=== PATIENT | female | born 1990 | race Hispanic/Latino ===

== ENCOUNTER 2019-02-20 13:55 | Emergency (ER) | payer OTHER | END 2019-02-20 16:19 | disposition home or self-care (01) | LOC: EDH 13:55 | DX: S09.90XA Unspecified injury of head, initial encounter (principal); R42 Dizziness and giddiness; F41.9 Anxiety disorder, unspecified; F32.9 Major depressive disorder, single episode, unspecified; Z79.899 Other long term (current) drug therapy; W18.39XA Other fall on same level, initial encounter; Y93.89 Activity, other specified; Y92.89 Other specified places as the place of occurrence of the external cause; Y99.8 Other external cause status | CPT/HCPCS: 99282 ==

== ENCOUNTER 2023-03-01 07:29 | Emergency (ER) | payer MEDICAID ==
[~2023-03-01] VITALS: Ht 160 cm; Wt 81.6 kg
[2023-03-01] MEDS ORDERED: DEXAMETHASONE SOD PHOSPHATE 4 MG/ML 1ML VIAL IM ONE (08:30)
[2023-03-01] MEDS ORDERED: BENZONATATE 100 MG CAPSULE PO ONE (08:30)
[2023-03-01] MEDS ORDERED: ALBUTEROL 0.083% 2.5 MG/3 ML INH IH ONE (08:30)
[2023-03-01 08:39] VITALS: PULSE 65; RESP 14
[2023-03-01 08:39] LABS: RAPID GROUP A STREP negative (NEGATIVE)
[2023-03-01 08:43] LABS: SARS-CoV-2, RNA, NAAT NEGATIVE SARS CoV-2 (NEGATIVE)
[2023-03-01 08:50] LABS: INFLUENZA TYPE A Negative For Type A (NEGATIVE); INFLUENZA TYPE B Negative For Type B (NEGATIVE)
[2023-03-01] MEDS ORDERED: BENZ-39 PO (09:36)
[2023-03-01] MEDS ORDERED: ALBUHFA IH (09:36)
[2023-03-01 09:48] VITALS: BP 111/72; PULSE 67; RESP 14; O2SAT 98
== END 2023-03-01 10:04 | disposition home or self-care (01) ==
LOC: EDH 07:29
DX: J02.8 Acute pharyngitis due to other specified organisms (principal); B97.89 Other viral agents as the cause of diseases classified elsewhere; J45.909 Unspecified asthma, uncomplicated; Z20.822 Contact with and (suspected) exposure to COVID-19; Z90.89 Acquired absence of other organs; Z98.890 Other specified postprocedural states; Z77.120 Contact with and (suspected) exposure to mold (toxic)
CPT/HCPCS: 99283; 87635; 87880; 87804 ×2; 96372; 94640; J1100; C9803

== ENCOUNTER 2023-05-30 21:31 | Emergency (ER) | payer MEDICAID ==
[~2023-05-30] VITALS: Ht 160 cm; Wt 82.6 kg
[~2023-05-30 21:31] MED LIST: ALBUHFA IH; BENZ-39 PO
[2023-05-30] MEDS ORDERED: SOLU-MEDROL 125MG VIAL IVP ONE (22:00)
[2023-05-30] MEDS ORDERED: IPRATROPIUM/ALBUTEROL SULFATE 3 ML SOLUTION IH ONE ×2 (22:00)
[2023-05-30 22:14] VITALS: PULSE 96; RESP 20
[2023-05-30 22:14] LABS: BASOPHILS # (AUTO) 0.06 K/uL (0.00-0.20); BASOPHILS % (AUTO) 0.4 % (0.0-5.0); EOSINOPHILS # (AUTO) 0.52 K/uL (0.00-0.70); EOSINOPHILS % (AUTO) 3.3 % (0.0-8.0); HEMATOCRIT 44.7 % (36-48); IMMATURE GRANULOCYTE ABSOLUTE 0.07 K/uL (0-1); LYMPHOCYTES # (AUTO) 4.1 K/uL (1.0-4.8); LYMPHOCYTES % (AUTO) 25.6 % (21.0-51.0); MEAN CORPUSCULAR HEMOGLOBIN 27.8 pg (27.0-33.0); MEAN CORPUSCULAR HGB CONC 33.8 g/dL (32.0-36.0); MEAN CORPUSCULAR VOLUME 82.3 fL (79-99); MONOCYTES # (AUTO) 0.6 K/uL (0.1-1.0); MONOCYTES % (AUTO) 3.6 % (3.0-13.0); NEUTROPHILS # (AUTO) 10.7 K/uL (1.8-7.7); NEUTROPHILS % (AUTO) 66.7 % (40.0-77.0); PLATELET COUNT (AUTO) 248 K/uL (130-400); RED BLOOD CELL COUNT(AUTO) 5.43 MIL/uL (4.00-5.50)
[2023-05-30 22:20] LABS: APPEARANCE,URINE CLEAR (CLEAR); BILIRUBIN,URINE NEGATIVE (NEGATIVE); COLOR,URINE LIGHT-YELLOW (YELLOW); GLUCOSE, URINE (UA) NEGATIVE (NEGATIVE); KETONES,URINE NEGATIVE (NEGATIVE); LEUKOCYTE ESTERASE ,URINE 75 Leu/uL (NEGATIVE); NITRATE,URINE NEGATIVE (NEGATIVE); OCCULT BLOOD,URINE LARGE (NEGATIVE); PH,URINE 5.5 (5.0-8.0); PROTEIN,URINE NEGATIVE (NEGATIVE); UROBILINOGEN,URINE 0.2 mg/dL (0.2-1.0)
[2023-05-30 22:21] LABS: ADD UA MICROSCOPIC YES
[2023-05-30 22:22] LABS: MUCUS,URINE RARE LPF (None Seen); RBC,URINE 26-50 /HPF (0-1); SQUAMOUS EPITHELIAL CELL,UR MOD /HPF (0-2)
[2023-05-30 22:25] VITALS: PULSE 106; RESP 20
[2023-05-30 22:27] LABS: SARS-CoV-2, RNA, NAAT NEGATIVE SARS CoV-2 (NEGATIVE)
[2023-05-30 22:32] LABS: INFLUENZA TYPE A Negative For Type A (NEGATIVE); INFLUENZA TYPE B Negative For Type B (NEGATIVE)
[2023-05-30 22:43] LABS: ALBUMIN 3.2 g/dL (3.5-5.0); BILIRUBIN,TOTAL 0.4 mg/dL (0.2-1.0); CREATININE 0.7 mg/dL (0.5-1.5); POTASSIUM 3.4 mmol/L (3.5-5.1); TOTAL PROTEIN, SERUM 7.2 g/dL (6.0-8.3)
[2023-05-30] MEDS ORDERED: BUDE0.5A3 IH (22:58)
[2023-05-30] MEDS ORDERED: PRED50TA2 PO (22:58)
[2023-05-30] MEDS ORDERED: IPRA3AMP24 IH (22:58)
[2023-05-30 23:03] VITALS: BP 106/66; PULSE 85; RESP 18; O2SAT 100
== END 2023-05-30 23:14 | disposition home or self-care (01) ==
LOC: EDH 21:31
DX: J45.901 Unspecified asthma with (acute) exacerbation (principal); Z88.8 Allergy status to other drugs, medicaments and biological substances; Z90.89 Acquired absence of other organs; Z20.822 Contact with and (suspected) exposure to COVID-19
CPT/HCPCS: 99285; 96374; 87635; 80053; 85025; 87088; 87880; 87804 ×2; 81001; 36415; 94640 ×2; C9803; J2930; 96375

== ENCOUNTER 2023-07-05 13:59 | Emergency (ER) | payer MEDICAID ==
[~2023-07-05] VITALS: Ht 160 cm; Wt 82.6 kg
[~2023-07-05 13:59] MED LIST changes: +BUDE0.5A3 IH; +IPRA3AMP24 IH; +PRED50TA2 PO
[2023-07-05 16:00] VITALS: PULSE 105; RESP 20
[2023-07-05] MEDS ORDERED: IBUPROFEN 600 MG TABLET PO ONE (16:00)
[2023-07-05] MEDS ORDERED: IPRATROPIUM/ALBUTEROL SULFATE 3 ML SOLUTION IH ONE (16:00)
[2023-07-05] MEDS ORDERED: PREDNISONE 20 MG TABLET PO ONE (16:00)
[2023-07-05 16:36] VITALS: BP 104/66; PULSE 103; RESP 20; O2SAT 99
[2023-07-05] MEDS ORDERED: PRED20TA3 PO (17:12)
== END 2023-07-05 17:30 | disposition home or self-care (01) ==
LOC: EDH 13:59
DX: J45.901 Unspecified asthma with (acute) exacerbation (principal)
CPT/HCPCS: 94640

== ENCOUNTER 2023-08-30 10:22 | Observation (INO) | payer MEDICAID ==
[2023-08-30] VITALS (9 sets, daily range): BP systolic 108–117; BP diastolic 66–72; PULSE 99–114; RESP 16–28; O2SAT 95–97
[~2023-08-30] VITALS: Ht 160 cm; Wt 82.6 kg
[~2023-08-30 10:22] MED LIST changes: +PRED20TA3 PO
[2023-08-30] MEDS ORDERED: BUDESONIDE 0.25 MG/2 ML INH IH ONE (10:30)
[2023-08-30] MEDS: SOLU-MEDROL 125MG VIAL ONE (10:36)
[2023-08-30] MEDS: SOLU-MEDROL 125MG VIAL IVP ONE (10:36)
[2023-08-30] MEDS: LORAZEPAM 2 MG/ML 1 ML VIAL IVP ONE (10:36)
[2023-08-30] MEDS: IPRATROPIUM/ALBUTEROL SULFATE 3 ML SOLUTION IH ONE ×2 (10:40→10:46)
[2023-08-30 10:42] LABS: ABG BASE EXCESS -2.3 mmol/L (-2.0-3.0); ABG HCO3 21.3 mmol/L (21.0-28.0); ABG OXYGEN SATURATION 98.3 % (95.0-99.0); ABG PCO2 34 mmHg (32-45); CARBON MONOXIDE 0.3; HHb 1.7; PO2, ARTERIAL BG 110.3 mmHg (83.0-108.0); VENT MODE, BG NEB TREATMENT (ROOM AIR)
[2023-08-30] MEDS: 0.9%NACL 1000ML 1,000 ML IV ONE (10:43)
[2023-08-30] MEDS: MAGNESIUM 2GM PREMIX 50ML 50 ML IV ONE (10:50)
[2023-08-30] MEDS: BUDESONIDE 0.5 MG/2 ML INH IH SCH (10:51)
[2023-08-30 11:04] LABS: BASOPHILS # (AUTO) 0.06 K/uL (0.00-0.20); BASOPHILS % (AUTO) 0.5 % (0.0-5.0); EOSINOPHILS # (AUTO) 0.51 K/uL (0.00-0.70); EOSINOPHILS % (AUTO) 4.6 % (0.0-8.0); HEMATOCRIT 40.4 % (36-48); IMMATURE GRANULOCYTE ABSOLUTE 0.12 K/uL (0-1); LYMPHOCYTES # (AUTO) 2.8 K/uL (1.0-4.8); LYMPHOCYTES % (AUTO) 25.1 % (21.0-51.0); MEAN CORPUSCULAR HEMOGLOBIN 26.6 pg (27.0-33.0); MEAN CORPUSCULAR HGB CONC 32.4 g/dL (32.0-36.0); MEAN CORPUSCULAR VOLUME 82.1 fL (79-99); MONOCYTES # (AUTO) 0.3 K/uL (0.1-1.0); NEUTROPHILS # (AUTO) 7.3 K/uL (1.8-7.7); NEUTROPHILS % (AUTO) 65.7 % (40.0-77.0); PLATELET COUNT (AUTO) 190 K/uL (130-400); RED BLOOD CELL COUNT(AUTO) 4.92 MIL/uL (4.00-5.50); WHITE BLOOD COUNT (AUTO) 11.2 K/uL (4.8-10.8)
[2023-08-30 11:15] LABS: CREATININE 0.8 mg/dL (0.5-1.5); POTASSIUM 3.2 mmol/L (3.5-5.1)
[2023-08-30 11:20] LABS: BILIRUBIN,TOTAL 0.3 mg/dL (0.2-1.0); TOTAL PROTEIN, SERUM 6.7 g/dL (6.0-8.3)
[2023-08-30] MEDS ORDERED: IPRATROPIUM/ALBUTEROL SULFATE 3 ML SOLUTION IH PRN (12:30)
[2023-08-30] MEDS ORDERED: ONDANSETRON 4MG INJ IVP PRN (12:30)
[2023-08-30] MEDS: 0.9%NACL 1000ML 1,000 ML IV SCH (14:44)
[2023-08-30] MEDS: AZITHROMYCIN 500MG+NS 250ML 250 ML IVPB SCH (14:44)
[2023-08-30] MEDS: 0.9% NACL 250ML 250 ML ONE (14:45)
[2023-08-30] MEDS: CEFTRIAXONE 1G VIAL IVPB SCH (14:45)
[2023-08-30 15:12] LABS: APPEARANCE,URINE CLEAR (CLEAR); BILIRUBIN,URINE NEGATIVE (NEGATIVE); COLOR,URINE LIGHT-YELLOW (YELLOW); GLUCOSE, URINE (UA) NEGATIVE (NEGATIVE); KETONES,URINE NEGATIVE (NEGATIVE); LEUKOCYTE ESTERASE ,URINE NEGATIVE Leu/uL (NEGATIVE); NITRATE,URINE NEGATIVE (NEGATIVE); OCCULT BLOOD,URINE SMALL (NEGATIVE); PH,URINE 5.5 (5.0-8.0); PROTEIN,URINE NEGATIVE (NEGATIVE); UROBILINOGEN,URINE 0.2 mg/dL (0.2-1.0)
[2023-08-30 15:13] LABS: ADD UA MICROSCOPIC YES
[2023-08-30 15:16] LABS: BACTERIA,URINE RARE /HPF (None Seen); MUCUS,URINE RARE LPF (None Seen); SQUAMOUS EPITHELIAL CELL,UR FEW /HPF (0-2); WBC,URINE 0-1 /HPF (0-1); YEAST,URINE BUDDING RARE /HPF (None Seen)
[2023-08-30] MEDS ORDERED: GUAIFENESIN-DM 200/20 MG 10 ML PO PRN (15:30)
[2023-08-30] MEDS ORDERED: POTASSIUM CHLORIDE 20MEQ/100ML 100 ML IV PRN (16:00)
[2023-08-30] MEDS: ACETAMINOPHEN 325 MG TAB PO PRN (16:11)
[2023-08-30] MEDS: IPRATROPIUM/ALBUTEROL SULFATE 3 ML SOLUTION IH SCH (20:14)
[2023-08-30] MEDS: FAMOTIDINE 20MG VIAL IV SCH (20:38)
[2023-08-30] MEDS: SOLU-MEDROL 40MG VIAL IVP SCH (20:38)
[2023-08-30] MEDS ORDERED: MIRT7.5T11 PO (20:46)
[2023-08-30] MEDS ORDERED: SERT-439 PO (20:46)
[2023-08-30] MEDS: POTASSIUM CHLORIDE 10% ELIXIR 20 MEQ/15 ML UDCUP PO PRN (21:59)
[2023-08-30] MEDS: HYDROXYZINE 25 MG TABLET PO ONE (21:59)
[2023-08-30] MEDS: KCL 20 MEQ ERTAB PO PRN (23:50)
[2023-08-31 04:00] VITALS: BP 103/70; PULSE 86; RESP 19
[2023-08-31 06:35] LABS: CREATININE 0.6 mg/dL (0.5-1.5); MAGNESIUM 2.6 mg/dL (1.80-2.40); POTASSIUM 4.2 mmol/L (3.5-5.1)
[2023-08-31 06:53] VITALS: PULSE 72; RESP 20
[2023-08-31 06:55] VITALS: PULSE 82; RESP 20; O2SAT 96
[2023-08-31 07:09] VITALS: BP 111/64; PULSE 91; RESP 19
[2023-08-31 08:00] VITALS: O2SAT 97
[2023-08-31] MEDS: SOLU-MEDROL 40MG VIAL IVP SCH (10:08)
[2023-08-31] MEDS: ENOXAPARIN SODIUM 40 MG/0.4 ML SYRINGE SQ SCH (10:12)
[2023-08-31] MEDS ORDERED: AZIT500T4 PO (10:53)
[2023-08-31] MEDS ORDERED: METH4TAB3 PO (10:53)
[2023-08-31 11:33] VITALS: PULSE 84; RESP 20
[2023-09-08] MEDS ORDERED: BUDE10.7 IH (18:02)
[2023-09-08] MEDS ORDERED: PRED5SOL PO (18:04)
[2023-09-08] MEDS ORDERED: PRED10TA3 PO (18:04)
[2023-09-09] MEDS ORDERED: MONT-39 PO (17:33)
== END 2023-08-31 12:00 | disposition home or self-care (01) ==
LOC: EDH 10:22 → EDHIP 10:23 → UNDOADMOB 12:25 → EDHIP 17:51 → 3BH 17:51
PROVIDERS: ADMIT Internal Medicine; ATTEND Internal Medicine
DX: J96.01 Acute respiratory failure with hypoxia (principal); J45.901 Unspecified asthma with (acute) exacerbation; E87.6 Hypokalemia; D72.829 Elevated white blood cell count, unspecified; R00.0 Tachycardia, unspecified; F41.9 Anxiety disorder, unspecified; Z88.5 Allergy status to narcotic agent; Z90.710 Acquired absence of both cervix and uterus
CPT/HCPCS: 96376 ×2; 96365; 96366; 96375; 96367; 99285; 82435; 82947; 84132; 84295; 80053; 82803; 85025; 85018; 87088; 83605; 81001; 36415 ×2; 71045; 93005; 36600; 94640 ×6; 94664; 84145; 96372; 96361; 83735; 80048; G0378 ×22; J3475; S0028 ×2; J7030; J2930; J0696; J2920 ×2; J0456; J7050; J1650; J3490

== ENCOUNTER 2023-09-11 08:37 | Emergency (ER) | payer MEDICAID ==
[~2023-09-11] VITALS: Ht 160 cm; Wt 82.6 kg
[~2023-09-11 08:37] MED LIST changes: -BENZ-39 PO; -BUDE0.5A3 IH; +BUDE10.7 IH; -IPRA3AMP24 IH; +MIRT7.5T11 PO; +MONT-39 PO; +PRED10TA3 PO; -PRED20TA3 PO; -PRED50TA2 PO; +PRED5SOL PO; +SERT-439 PO
[2023-09-11 08:57] LABS: BASOPHILS # (AUTO) 0.13 K/uL (0.00-0.20); BASOPHILS % (AUTO) 0.5 % (0.0-5.0); EOSINOPHILS # (AUTO) 0.42 K/uL (0.00-0.70); EOSINOPHILS % (AUTO) 1.7 % (0.0-8.0); HEMATOCRIT 45.6 % (36-48); IMMATURE GRANULOCYTE ABSOLUTE 0.69 K/uL (0-1); LYMPHOCYTES # (AUTO) 5.8 K/uL (1.0-4.8); LYMPHOCYTES % (AUTO) 23.6 % (21.0-51.0); MEAN CORPUSCULAR HEMOGLOBIN 26.2 pg (27.0-33.0); MEAN CORPUSCULAR HGB CONC 32.5 g/dL (32.0-36.0); MEAN CORPUSCULAR VOLUME 80.9 fL (79-99); MONOCYTES % (AUTO) 4.2 % (3.0-13.0); NEUTROPHILS # (AUTO) 16.5 K/uL (1.8-7.7); NEUTROPHILS % (AUTO) 67.2 % (40.0-77.0); PLATELET COUNT (AUTO) 324 K/uL (130-400); RED BLOOD CELL COUNT(AUTO) 5.64 MIL/uL (4.00-5.50); RED CELL DISTRIBUTION WIDTH 14.2 % (11.0-15.5); WHITE BLOOD COUNT (AUTO) 24.6 K/uL (4.8-10.8)
[2023-09-11 09:15] LABS: INR <= 0.93 (0.85-1.15); PROTHROMBIN TIME 10.3 SEC (9.6-11.6)
[2023-09-11 09:16] LABS: PARTIAL THROMBOPLASTIN TIME 29.5 SEC (26.3-35.5)
[2023-09-11 09:18] LABS: ALBUMIN 3.5 g/dL (3.5-5.0); BILIRUBIN,TOTAL 0.7 mg/dL (0.2-1.0); CREATININE 0.6 mg/dL (0.5-1.0); MAGNESIUM 2.3 mg/dL (1.80-2.40); POTASSIUM 4.9 mmol/L (3.5-5.1)
[2023-09-11] MEDS: ONDANSETRON 4MG INJ IVP ONE (09:26)
[2023-09-11 09:48] LABS: B-TYPE NATRIURETIC PEPTIDE < 5 pg/mL (0-100)
[2023-09-11] MEDS ORDERED: IOHEXOL-350 75 ML VIAL IV ONE (10:42)
[2023-09-11 10:47] LABS: EOSINOPHILS % (MANUAL) 1 % (1-6); LYMPHOCYTES % (MANUAL) 17 % (22-44); MAN.DIFF COMMENT-IMPRESSION MANUAL DIFFERENTIAL; MONOCYTES % (MANUAL) 1 % (2-9); PLATELET MORPHOLOGY COMMENT ADEQUATE; REACTIVE LYMPHOCYTES 6 % (0-0); SEGMENTED NEUTROPHILS % 75 % (40-70); TOTAL CELLS COUNTED 100
[2023-09-11 11:01] LABS: AMPHET/METH SCREEN,URINE NEGATIVE (NEGATIVE); BARBITURATE SCREEN, URINE NEGATIVE (NEGATIVE); BENZODIAZEPINES SCREEN,URINE POSITIVE (NEGATIVE); CANNABINOID SCREEN,URINE NEGATIVE (NEGATIVE); COCAINE SCREEN,URINE NEGATIVE (NEGATIVE); OPIATE SCREEN,URINE NEGATIVE (NEGATIVE); PHENCYCLIDINE SCREEN,URINE NEGATIVE (NEGATIVE)
[2023-09-11] MEDS ORDERED: IOHEXOL-350 50ML VIAL IV ONE (11:18)
[2023-09-11 12:06] LABS: APPEARANCE,URINE CLEAR (CLEAR); BILIRUBIN,URINE NEGATIVE (NEGATIVE); COLOR,URINE YELLOW (YELLOW); GLUCOSE, URINE (UA) NEGATIVE (NEGATIVE); KETONES,URINE NEGATIVE (NEGATIVE); LEUKOCYTE ESTERASE ,URINE NEGATIVE Leu/uL (NEGATIVE); NITRATE,URINE NEGATIVE (NEGATIVE); OCCULT BLOOD,URINE NEGATIVE (NEGATIVE); PH,URINE 8.5 (5.0-8.0); PROTEIN,URINE 30 mg/dL (NEGATIVE); UROBILINOGEN,URINE 0.2 mg/dL (0.2-1.0)
[2023-09-11 12:07] LABS: ADD UA MICROSCOPIC YES
[2023-09-11 12:13] LABS: AMORPHOUS SEDIMENT,UR Few /LPF (None Seen); BACTERIA,URINE Few /HPF (None Seen)
[2023-09-11 12:14] LABS: RBC,URINE 0-1 /HPF (0-1); WBC,URINE 0-1 /HPF (0-1)
[2023-09-11] MEDS: 0.9% NACL 500ML IV.SOLN 500 ML IV ONE (13:42)
[2023-09-11] MEDS: NYSTATIN 100000 UNIT/ML 5ML UDCUP PO ONE (13:42)
[2023-09-11] MEDS ORDERED: ONDA4TAB10 PO (14:41)
[2023-09-11] MEDS ORDERED: NYST5ORA7 PO (14:41)
[2023-09-11 15:13] VITALS: BP 122/68; PULSE 82; RESP 18; O2SAT 99
== END 2023-09-11 15:28 | disposition home or self-care (01) ==
LOC: EDH 08:37
DX: R07.89 Other chest pain (principal); B37.0 Candidal stomatitis; D72.829 Elevated white blood cell count, unspecified; J45.901 Unspecified asthma with (acute) exacerbation; M79.662 Pain in left lower leg; M79.661 Pain in right lower leg; Z79.899 Other long term (current) drug therapy; Z90.710 Acquired absence of both cervix and uterus; Z98.890 Other specified postprocedural states; Z88.8 Allergy status to other drugs, medicaments and biological substances
CPT/HCPCS: 99285; 93970; 96374; 71270; 71045; 96361; 82550; 83735; 84484 ×2; 80053; 83880; 80305; 85025; 85378; 85610; 85730; 83605; 81001; 36415; 93005; J7040; J2405; Q9967 ×2

== ENCOUNTER 2024-04-26 18:16 | Emergency (ER) | payer MEDICAID ==
[~2024-04-26] VITALS: Ht 160 cm; Wt 74.8 kg
[~2024-04-26 18:16] MED LIST changes: +NYST100033 PO; +ONDA-243 PO
[2024-04-26 18:56] VITALS: BP 156/67; PULSE 70; RESP 14; TEMP 97.9; O2SAT 100
--- NOTE | 2024-04-26 19:20 | ERN ---
ED Note History of Present Illness Stated Complaint: FOOT PAIN/INJURY Chief Complaint: FOOT INJURY/PAIN Time Seen by MD: 18:23 Time Seen by Midlevel: 18:23 Dictation: Patient is a 33-year-old female with a history of asthma, hysterectomy who presents to the emergency department with complaints of right foot pain after two labs found them this morning. Patient denies any other injuries. Allergies: Coded Allergies: chlorpheniramine (Unverified Allergy, Unknown, 08/30/23) dextromethorphan (Unverified Allergy, Unknown, 08/30/23) pseudoephedrine (Unverified Allergy, Unknown, 08/30/23) Home Meds Active Scripts Nystatin (Nystatin) 100,000 Unit/Ml Oral.susp, 5 ML PO QID for 7 Days, #140 ML 0 Refills Prov:GWEN GREGORIO MD 09/11/23 Ondansetron (Ondansetron Odt) 4 Mg Tab.rapdis, 4 MG PO TIDP PRN for NAUSEA, #30 TAB 0 Refills Prov:GWEN GREGORIO MD 09/11/23 Montelukast Sodium (Montelukast Sodium) 10 Mg Tablet, 10 MG PO HS for 30 Days, #30 TAB Prov:MARISABEL COOK 09/09/23 Prednisone (Prednisone) 10 Mg Tablet, 10 MG PO DAILY for 10mgx5 days followed 5mgx5, #5 TAB 0 Refills Prov:CELESTE TRINIDAD CNP 09/08/23 Prednisone (Prednisone) 5 Mg/5 Ml Solution, 5 MG PO DAILY, #5 ML 0 Refills Prov:CELESTE TRINIDAD CNP 09/08/23 Budesonide/Glycopyr/Formoterol (Breztri Aerosphere Inhaler) 160 Mcg-9 Mcg-4.8 Mcg/Actuation Hfa.aer.ad, 10.7 GM IH DAILY, #30 DAYS 0 Refills Prov:CELESTE TRINIDAD CNP 09/08/23 Albuterol Sulfate (Ventolin Hfa/Proventil Hfa/Proair Hfa) 90 Mcg/Puff Puff, 2 PUFF IH Q4H PRN for SHORTNESS OF BREATH/WHEEZING for 30 Days, #1 INH 2 Refills Prov:GLORIA KUO Sr., MD 03/01/23 Reported Medications Mirtazapine (Mirtazapine) 7.5 Mg Tablet, 1 TAB PO HS 08/30/23 Sertraline HCl (Sertraline HCl) 50 Mg Tablet, 50 MG PO DAILY 08/30/23 Past Medical History Past Medical History: Asthma Surgical History: Hysterectomy, None Surgical History Other: ABD HERNIA REPAIR Family History: HTN Social History: Negative History: Not Applicable RN Note Reviewed/Agreed w/PFSH: Yes Review of System Dictation Constitutional: Negative for fever,chills, and weight loss Eyes: Negative for injury, pain,redness, and discharge ENT: Negative for injury,pain or swelling Cardiovascular: Negative for chest pain, palpitations, and edema Respiratory: Negative for shortness of breath, cough, and wheezing, Abdomen/GI: Negative for abdominal pain, nausea, vomiting, diarrhea, and constipation Back: Negative for injury and pain : Negative for injury, bleeding and discharge MS/Extremity: Positive for right foot injury Skin: Negative for rash, and discoloration Neuro: Negative for headache, weakness, numbness, tingling, and seizure Psych: Negative for suicide ideation, homicidal ideation, and hallucinations Initial Vital Sign VS Vital Signs Date Time Temp Pulse Resp B/P (MAP) Pulse Ox O2 Delivery O2 Flow Rate FiO2 04/26/24 18:17 97.9 70 14 116/67 100 0 04/26/24 18:56 Room Air* 21 Physical Exam Dictation Vital Signs reviewed General Appearance: Alert, oriented x 3, no acute distress, well developed, nourished. Head and Face: non-traumatic. Eyes: PERRL, pink conjunctivas, eyelid no trauma, anterior chamber with arcus senilis. Ears: Pinnas intact and no signs of trauma or erythema ear canals clear and no discharge TM no erythema Nose: No discharge, no bleeding. Oropharynx: Mouth normal, tongue pink. pharynx clear,no erythema, tonsils no exudates, no abscesses noted, mucous membrane moist Neck: Supple, non-tender, no thyromegaly, no masses, no JVD, no bruits Breast:Deferred Chest:No tenderness, no crepitus, no paradoxical movement, no retractions Lungs:Clear, well-ventilated, symmetric, no rales, no wheezing, no rhonchi, no stridor, good breath sounds bilaterally Heart: Regular rate, regular rhythm, no murmur, no gallops Vascular: no peripheral edema, dorsalis pedis 3+ bilaterally Abdomen: Soft, positive bowel sounds, nondistended, no guarding, nontender, no rebound, no masses no hepatomegaly, no splenomegaly, no Gomez's sign, no hernias. Rectal: Deferred Genital: Deferred Neurological: Normal speech, motor function intact, sensory function intact Musculoskeletal: Neck nontender, full range of motion, back nontender, full range of motion, Extremities: nontender, full range of motion , contusion to right foot, no deformity, bruising noted to 3rd and 4th toe, CMS intact, cap refill less than 2 seconds Skin: Color pink, dry, no turgor, no rash, no lacerations, no abrasions, bruising noted to right anterior foot and 3rd and 4th toe, no Lymphatic: Deferred Results (Laboratory/Radiology) Laboratory/Radiology REASON: injury ORDERING PHYSICIAN: WILLY WILEY [employer] PROCEDURE: FT 3VW RT - FOOT COMP 3+VWS RT Exam Type: TOE(S) 2+VWS RT, FOOT COMP 3+VWS RT Clinical Information: injury Comparison: None Findings: The bone examination is unremarkable. No fractures or dislocations are seen. No radiopaque foreign bodies are noted. There is no bone destruction to suggest osteomyelitis or tumor. The soft tissues are unremarkable. Impression: Normal exam. REASON: injury ORDERING PHYSICIAN: WILLY WILEY [employer] PROCEDURE: TOES RT - TOE(S) 2+VWS RT Exam Type: TOE(S) 2+VWS RT, FOOT COMP 3+VWS RT Clinical Information: injury Comparison: None Findings: The bone examination is unremarkable. No fractures or dislocations are seen. No radiopaque foreign bodies are noted. There is no bone destruction to suggest osteomyelitis or tumor. The soft tissues are unremarkable. Impression: Normal exam. Labs Reviewed?: Yes ED Course ED Course Orders Procedure Category Date Status Time Foot Comp 3+Vws Rt RAD 04/26/24 Resulted 18:36 Toe(S) 2+Vws Rt RAD 04/26/24 Resulted 18:36 Ketorolac 60mg/2ml PHA 04/26/24 Complete (Toradol 60mg/2ml) 19:00 Current Medications Medications (Trade) Dose Ordered Sig/Dominguez Route PRN Reason Start Time Stop Time Status Last Admin Dose Admin Ketorolac Tromethamine (toRADol 60MG/ 2ML) 60 mg ONCE ONCE IM 04/26/24 19:00 04/26/24 19:01 DC 04/26/24 19:47 Vital Signs Date Time Temp Pulse Resp B/P (MAP) Pulse Ox O2 Delivery O2 Flow Rate FiO2 04/26/24 18:56 97.9 70 14 156/67 100 Room Air* 0 21 04/26/24 18:17 97.9 70 14 116/67 100 0 Medical Decision Making MDM Patient is a 33-year-old female with a history of asthma, hysterectomy who presents to the emergency department with complaints of right foot pain after two labs found them this morning. Patient denies any other injuries. Differential diagnosis: Foot contusion, metatarsal fracture, cellulitis, X-ray showed no acute fractures. Patient will be discharged to follow up with primary doctor Need for hospitalization: Patient does not meet criteria for hospitalization. There are no social concerns with this patient. DX & DISP Disposition: Discharge Departure Impression: Primary Impression: Contusion of foot, right Condition: Stable Additional Instructions: FOLLOW-UP WITH PRIMARY CARE PROVIDER IN 1 TO 2 DAYS. TAKE MEDICATIONS DIRECTED HERE IN THE EMERGENCY ROOM. OKAY TO CONTINUE HOME MEDICATIONS UNLESS OTHERWISE DISCUSSED DURING YOUR VISIT IN THE EMERGENCY ROOM TODAY. RETURN TO YOUR NEAREST EMERGENCY ROOM IF SYMPTOMS WORSEN OR IF THERE IS NO IMPROVEMENT. CALL 911 IF YOU NEED IMMEDIATE ASSISTANCE. TAKE TYLENOL OR MOTRIN OVER-THE- COUNTER NEEDED AND IF NO CONTRAINDICATIONS ARE PRESENT. INCREASE ORAL HYDRATION. A WOUND CULTURE OR URINE CULTURE WAS ORDERED HERE IN THE EMERGENCY ROOM DEPARTMENT PLEASE FOLLOW-UP WITH PRIMARY CARE PROVIDER AND ADVISE THEM TO GET REPEAT PORTS FROM OUR FACILITY. IF YOU HAD ANY BROOKE WRAP/SPLINTS THAT WERE APPLIED HERE, PLEASE DO NOT REMOVE THEM UNTIL YOU SEE YOUR PRIMARY CARE OR SPECIALTY. Referrals: NONE (PCP) Time of Disposition: 19:57 I have reviewed the case, and I agree with, Diagnosis and Plan WILLY WILEY Apr 26, 2024 19:20
--- NOTE | 2024-04-26 19:33 | HMCIMG ---
Exam Type: TOE(S) 2+VWS RT, FOOT COMP 3+VWS RT Clinical Information: injury Comparison: None Findings: The bone examination is unremarkable. No fractures or dislocations are seen. No radiopaque foreign bodies are noted. There is no bone destruction to suggest osteomyelitis or tumor. The soft tissues are unremarkable. Impression: Normal exam.
[2024-04-26] MEDS: ketOROlac 60 MG VIAL (30MG/ML) IM ONE (19:47)
== END 2024-04-26 20:37 | disposition home or self-care (01) ==
LOC: EDH 18:16
DX: S90.31XA Contusion of right foot, initial encounter (principal); J45.909 Unspecified asthma, uncomplicated; Z79.52 Long term (current) use of systemic steroids; Z88.8 Allergy status to other drugs, medicaments and biological substances; Z90.710 Acquired absence of both cervix and uterus; Z98.890 Other specified postprocedural states; X58.XXXA Exposure to other specified factors, initial encounter; Y93.89 Activity, other specified; Y92.89 Other specified places as the place of occurrence of the external cause; Y99.8 Other external cause status
CPT/HCPCS: 99284; 73630; 96372; 73660; J1885

== ENCOUNTER 2024-09-04 05:35 | Emergency (ER) | payer MEDICAID ==
[~2024-09-04] VITALS: Ht 157.5 cm; Wt 74.8 kg
--- NOTE | 2024-09-04 06:05 | ERN ---
ED Note History of Present Illness Stated Complaint: RUQ, RLQ ABDOMINAL PAIN, N/V ONSET 0230 Chief Complaint: Abdominal Pain Time Seen by MD: 05:58 Dictation: This is a 34-year-old female who presented to the emergency room with complaints of right-sided abdominal pain right upper and lower quadrants which started around 10:30 p.m.. She stated that she began experiencing nausea and vomitings and she had 3 times a emesis. She did report that she had issues with the appendix before with the inflammation which subsided on its own. Temperature 99.5 pulse 107, respiratory rate 20 blood pressure 122/79 with a pulse oximetry of 98% on room air Allergies: Coded Allergies: chlorpheniramine (Unverified Allergy, Unknown, 08/30/23) dextromethorphan (Unverified Allergy, Unknown, 08/30/23) pseudoephedrine (Unverified Allergy, Unknown, 08/30/23) Home Meds Active Scripts Nystatin (Nystatin) 100,000 Unit/Ml Oral.susp, 5 ML PO QID for 7 Days, #140 ML 0 Refills Prov:GWEN GREGORIO MD 09/11/23 Ondansetron (Ondansetron Odt) 4 Mg Tab.rapdis, 4 MG PO TIDP PRN for NAUSEA, #30 TAB 0 Refills Prov:GWEN GREGORIO MD 09/11/23 Montelukast Sodium (Montelukast Sodium) 10 Mg Tablet, 10 MG PO HS for 30 Days, #30 TAB Prov:MARISABEL COOK 09/09/23 Prednisone (Prednisone) 10 Mg Tablet, 10 MG PO DAILY for 10mgx5 days followed 5mgx5, #5 TAB 0 Refills Prov:CELESTE TRINIDAD CNP 09/08/23 Prednisone (Prednisone) 5 Mg/5 Ml Solution, 5 MG PO DAILY, #5 ML 0 Refills Prov:CELESTE TRINIDAD CNP 09/08/23 Budesonide/Glycopyr/Formoterol (Breztri Aerosphere Inhaler) 160 Mcg-9 Mcg-4.8 Mcg/Actuation Hfa.aer.ad, 10.7 GM IH DAILY, #30 DAYS 0 Refills Prov:CELESTE TRINIDAD CNP 09/08/23 Albuterol Sulfate (Ventolin Hfa/Proventil Hfa/Proair Hfa) 90 Mcg/Puff Puff, 2 PUFF IH Q4H PRN for SHORTNESS OF BREATH/WHEEZING for 30 Days, #1 INH 2 Refills Prov:GLORIA KUO Sr., MD 03/01/23 Reported Medications Mirtazapine (Mirtazapine) 7.5 Mg Tablet, 1 TAB PO HS 08/30/23 Sertraline HCl (Sertraline HCl) 50 Mg Tablet, 50 MG PO DAILY 08/30/23 Past Medical History Past Medical History: Asthma Surgical History: Hysterectomy, None Surgical History Other: ABD HERNIA REPAIR Family History: HTN Social History: Negative History: Not Applicable RN Note Reviewed/Agreed w/PFSH: Yes Review of System Dictation Constitutional: Negative for fever,chills, and weight loss Eyes: Negative for injury, pain,redness, and discharge ENT: Negative for injury,pain or swelling Cardiovascular: Negative for chest pain, palpitations, and edema Respiratory: Negative for shortness of breath, cough, and wheezing, Abdomen/GI: Positive for abdominal pain, nausea, vomiting, diarrhea, and constipation Back: Negative for injury and pain : Negative for injury, bleeding and discharge MS/Extremity: Negative for injury and deformity Skin: Negative for rash, and discoloration Neuro: Negative for headache, weakness, numbness, tingling, and seizure Psych: Negative for suicide ideation, homicidal ideation, and hallucinations Initial Vital Sign VS Vital Signs Date Time Temp Pulse Resp B/P (MAP) Pulse Ox O2 Delivery O2 Flow Rate FiO2 09/04/24 05:48 99.5 107 20 122/79 97 Room Air 0 09/04/24 06:51 21 Physical Exam Dictation General: awake, alert, NAD Head/Face: Normocephalic, atraumatic Eyes: PERRL, EOMI, vision at baseline ENT: oral cavity clear, TMs clear, no signs of infection Neck: Trachea midline, supple, no nuchal rigidity Cardiovascular: RRR, normal S1/S2, No MRGs, no JVD Respiratory: CTAB, no respiratory distress, No rales or wheezes Abdomen: Soft, non-tender, non-distended, normal bowel sounds, no guarding or rebound. Skin: Warm, dry, normal turgor, no rash MS/Extremity: Pulses equal, no cyanosis, neurovascular intact, FROM Neuro: COAx4, GCS 15, strength 5/5, CN 2-12 intact, normal cerebellar exam, normal gait, Psych: Normal behavior, mood, and affect normal Extremities-trace edema without any palpable cords, Homans sign is negative Results (Laboratory/Radiology) Laboratory/Radiology Laboratory Tests Test 09/04/24 06:04 White Blood Count 17.2 K/uL (4.8-10.8) H Red Blood Count 5.31 MIL/uL (4.00-5.50) Hemoglobin 14.4 g/dL (12.0-16.0) Hematocrit 44.1 % (36-48) Mean Corpuscular Volume 83.1 fL (79-99) Mean Corpuscular Hemoglobin 27.1 pg (27.0-33.0) Mean Corpuscular Hemoglobin Concent 32.7 g/dL (32.0-36.0) Red Cell Distribution Width 13.1 % (11.0-15.5) Platelet Count 225 K/uL (130-400) Mean Platelet Volume 10.7 fL (7.5-10.5) H Immature Granulocyte % (Auto) 1.1 % (0-1) H Neutrophils (%) (Auto) 84.8 % (40.0-77.0) H Lymphocytes (%) (Auto) 6.6 % (21.0-51.0) L Monocytes (%) (Auto) 5.5 % (3.0-13.0) Eosinophils (%) (Auto) 1.7 % (0.0-8.0) Basophils (%) (Auto) 0.3 % (0.0-5.0) Neutrophils # (Auto) 14.6 K/uL (1.8-7.7) H Lymphocytes # (Auto) 1.1 K/uL (1.0-4.8) Monocytes # (Auto) 0.9 K/uL (0.1-1.0) Eosinophils # (Auto) 0.29 K/uL (0.00-0.70) Basophils # (Auto) 0.05 K/uL (0.00-0.20) Absolute Immature Granulocyte (auto 0.19 K/uL (0-1) Nucleated Red Blood Cells 0.0 % (0.0-0.19) White Cell Morphology Comment See comments Urine Color LIGHT-YELLOW (YELLOW) Urine Appearance CLEAR (CLEAR) Urine pH 6.5 (5.0-8.0) Urine Specific [place] 1.023 (1.001-1.031) Urine Protein NEGATIVE mg/dL (NEGATIVE) Urine Glucose (UA) NEGATIVE mg/dL (NEGATIVE) Urine Ketones NEGATIVE mg/dL (NEGATIVE) Urine Occult Blood +- (TRACE) (NEGATIVE) H Urine Nitrate NEGATIVE (NEGATIVE) Urine Bilirubin NEGATIVE mg/dL (NEGATIVE) Urine Urobilinogen 0.2 mg/dL (0.2-1.0) Urine Leukocyte Esterase NEGATIVE [place]/uL Urine RBC 2-5 /HPF (0-1) H Urine WBC 0-1 /HPF (0-1) Urine Squamous Epithelial Cells MOD /HPF (0-2) Urine Bacteria RARE /HPF (None Seen) Urine HCG, Qualitative NEGATIVE (NEGATIVE) Sodium Level 135 mmol/L (136-145) L Potassium Level 3.7 mmol/L (3.5-5.1) Chloride Level 103 mmol/L (101-111) Carbon Dioxide Level 26 mmol/L (21-32) Blood Urea Nitrogen 13 mg/dL (7-18) Creatinine 0.6 mg/dL (0.5-1.0) Glomerular Filtration Rate Calc 121 mL/min (>90) Random Glucose 98 mg/dL (70-105) Total Calcium 8.2 mg/dL (8.5-10.1) L Lipase 33 U/L (16-77) Urine Opiates Screen NEGATIVE (NEGATIVE) Urine Barbiturates Screen NEGATIVE (NEGATIVE) Urine Phencyclidine Screen NEGATIVE (NEGATIVE) Urine Amphetamines Screen NEGATIVE (NEGATIVE) Urine Benzodiazepines Screen NEGATIVE (NEGATIVE) Urine Cocaine Screen NEGATIVE (NEGATIVE) Urine Marijuana (THC) Screen NEGATIVE (NEGATIVE) Labs Reviewed?: Yes ED Course ED Course Orders Procedure Category Date Status Time Cbc With Differential LAB 09/04/24 Complete 05:47 Basic Metabolic Panel LAB 09/04/24 Complete 05:47 Urinalysis Profile LAB 09/04/24 Complete 05:47 ,Urine Test LAB 09/04/24 Complete 05:47 Lipase LAB 09/04/24 Complete 05:47 Ct Abd/Pel Wo Con CT 09/04/24 Resulted Renal/Appy 06:00 0.9%Nacl 1000ml (Ns PHA 09/04/24 In Process 1000ml) 06:00 Morphine 2mg Syg PHA 09/04/24 Complete (Morphine 2mg Syg) 06:00 Ondansetron 4mg Inj PHA 09/04/24 Complete (Zofran 4mg Inj) 06:00 Drug Screen Urine LAB 09/04/24 Complete 08:37 Lidocaine Hcl 2% PHA 09/04/24 Complete Viscous (Lidocaine Hcl 10:00 Mag/Alum/Simeth 30ml PHA 09/04/24 Complete (Maalox Plus 30ml) 10:00 Pantoprazole 40mg Inj PHA 09/04/24 Complete (Protonix 40mg Inj 10:00 Current Medications Medications (Trade) Dose Ordered Sig/Dominguez Route PRN Reason Start Time Stop Time Status Last Admin Dose Admin Al Hydroxide/Mg Hydroxide (MAALox PLUS 30ML) 30 ml ONCE ONCE PO 09/04/24 10:00 09/04/24 10:01 DC 09/04/24 09:48 Lidocaine HCl (Lidocaine HCl 2% Viscous) 10 ml ONCE ONCE PO 09/04/24 10:00 09/04/24 10:01 DC 09/04/24 09:48 Morphine Sulfate (morPHINE 2MG SYG) 2 mg ONCE ONCE IVP 09/04/24 06:00 09/04/24 06:04 DC 09/04/24 06:24 Ondansetron HCl (zoFRAN 4MG INJ) 4 mg ONCE ONCE IVP 09/04/24 06:00 09/04/24 06:04 DC 09/04/24 06:23 Pantoprazole Sodium (PROTonix 40MG INJ) 40 mg ONCE ONCE IVP 09/04/24 10:00 09/04/24 10:01 DC 09/04/24 09:49 Sodium Chloride 1,000 ml @ 125 mls/hr ONCE ONCE IV 09/04/24 06:00 09/04/24 13:59 09/04/24 06:24 Vital Signs Date Time Temp Pulse Resp B/P (MAP) Pulse Ox O2 Delivery O2 Flow Rate FiO2 09/04/24 09:56 97.9 89 16 111/68 98 Room Air* 0 21 09/04/24 06:51 98.4 90 17 108/61 97 Room Air* 0 21 09/04/24 05:48 99.5 107 20 122/79 97 Room Air 0 We will perform diagnostic labs, advanced imaging and administer medications according to the patient's complaint. Once the results are available, will review and personally interpreted the labs to rule out any acute life- threatening emergency the trach require immediate intervention and treatment. I will then re-evaluate the patient after treatment and diagnostic exams have return to determine whether the patient requires any further testing, can safely be discharged home or need further admission to hospital for additional treatment and evaluation. 7:02 a.m. labs reviewed CBC showed a white count of 17.2 BNP 7 is within Normal limits lipase is 33 CT scan of the abdomen and pelvis has just been done results are pending Medical Decision Making MDM MDM: Differential diagnosis: Gastroenteritis, appendicitis, diverticulitis, Patient is a 34-year-old female coming in to be evaluated for abdominal pain. Laboratory workup elevated leukocytes which prompted us to do an imaging study to rule out any pathology. CT did not disclose acute findings. Patient will be discharged in stable condition with a diagnosis of gastroenteritis. Patient did tolerate oral challenge states he feels better will go home in stable condition. I advised her appropriate follow up with PCP in 1-2 days. Problem List Problem List: (1) Right lower quadrant abdominal pain (2) Nausea and vomiting DX & DISP Disposition: Discharge Departure Impression: Primary Impression: Gastroenteritis Condition: Stable Scripts Metronidazole (Flagyl) 375 Mg Capsule 500 MG PO BID for 7 Days, #14 CAP Prov: CELENA MICHAEL MD 09/04/24 Additional Instructions: FOLLOW-UP WITH PRIMARY CARE PROVIDER IN 1 TO 2 DAYS. TAKE MEDICATIONS DIRECTED HERE IN THE EMERGENCY ROOM. OKAY TO CONTINUE HOME MEDICATIONS UNLESS OTHERWISE DISCUSSED DURING YOUR VISIT IN THE EMERGENCY ROOM TODAY. RETURN TO YOUR NEAREST EMERGENCY ROOM IF SYMPTOMS WORSEN OR IF THERE IS NO IMPROVEMENT. CALL 911 IF YOU NEED IMMEDIATE ASSISTANCE. TAKE TYLENOL [id number] NEEDED AND IF NO CONTRAINDICATIONS ARE PRESENT. INCREASE ORAL HYDRATION. A WOUND CULTURE OR URINE CULTURE WAS ORDERED HERE IN THE EMERGENCY ROOM DEPARTMENT PLEASE FOLLOW-UP WITH PRIMARY CARE PROVIDER AND ADVISE THEM TO GET REPEAT PORTS FROM OUR FACILITY. IF YOU HAD ANY BROOKE WRAP/SPLINTS THAT WERE APPLIED HERE, PLEASE DO NOT REMOVE THEM UNTIL YOU SEE YOUR PRIMARY CARE OR SPECIALTY. Referrals: Referrals: SELF,REFERRAL (PCP) CARLOS MIRELES MD Time of Disposition: 10:05 CORRIE DEL RIO MD Sep 04, 2024 06:05 CELENA MICHAEL MD Sep 04, 2024 10:07
[2024-09-04 06:14] LABS: APPEARANCE,URINE CLEAR (CLEAR); BASOPHILS # (AUTO) 0.05 K/uL (0.00-0.20); BASOPHILS % (AUTO) 0.3 % (0.0-5.0); BILIRUBIN,URINE NEGATIVE (NEGATIVE); COLOR,URINE LIGHT-YELLOW (YELLOW); EOSINOPHILS # (AUTO) 0.29 K/uL (0.00-0.70); EOSINOPHILS % (AUTO) 1.7 % (0.0-8.0); GLUCOSE, URINE (UA) NEGATIVE (NEGATIVE); HEMATOCRIT 44.1 % (36-48); IMMATURE GRANULOCYTE ABSOLUTE 0.19 K/uL (0-1); KETONES,URINE NEGATIVE (NEGATIVE); LEUKOCYTE ESTERASE ,URINE NEGATIVE Leu/uL (NEGATIVE); LYMPHOCYTES # (AUTO) 1.1 K/uL (1.0-4.8); LYMPHOCYTES % (AUTO) 6.6 % (21.0-51.0); MEAN CORPUSCULAR HEMOGLOBIN 27.1 pg (27.0-33.0); MEAN CORPUSCULAR HGB CONC 32.7 g/dL (32.0-36.0); MEAN CORPUSCULAR VOLUME 83.1 fL (79-99); MONOCYTES # (AUTO) 0.9 K/uL (0.1-1.0); MONOCYTES % (AUTO) 5.5 % (3.0-13.0); NEUTROPHILS # (AUTO) 14.6 K/uL (1.8-7.7); NEUTROPHILS % (AUTO) 84.8 % (40.0-77.0); NITRATE,URINE NEGATIVE (NEGATIVE); PH,URINE 6.5 (5.0-8.0); PLATELET COUNT (AUTO) 225 K/uL (130-400); PROTEIN,URINE NEGATIVE (NEGATIVE); RED BLOOD CELL COUNT(AUTO) 5.31 MIL/uL (4.00-5.50); RED CELL DISTRIBUTION WIDTH 13.1 % (11.0-15.5); UROBILINOGEN,URINE 0.2 mg/dL (0.2-1.0); WHITE BLOOD COUNT (AUTO) 17.2 K/uL (4.8-10.8)
[2024-09-04 06:17] LABS: HCG,QUALITATIVE URINE NEGATIVE (NEGATIVE)
[2024-09-04] MEDS: ondanSETRON 4MG INJ IVP ONE (06:23)
[2024-09-04] MEDS: 0.9%NACL 1000ML 1,000 ML IV ONE (06:24)
[2024-09-04] MEDS: morPHINE 2 MG SYG IVP ONE (06:24)
[2024-09-04 06:25] LABS: CREATININE 0.6 mg/dL (0.5-1.0); POTASSIUM 3.7 mmol/L (3.5-5.1)
[2024-09-04 06:26] LABS: ADD UA MICROSCOPIC YES
[2024-09-04 07:32] LABS: BACTERIA,URINE RARE /HPF (None Seen); MUCUS,URINE RARE LPF (None Seen); SQUAMOUS EPITHELIAL CELL,UR MOD /HPF (0-2); WBC,URINE 0-1 /HPF (0-1)
--- NOTE | 2024-09-04 08:35 | HMCIMG ---
Exam Type: CT ABD/PEL WO CON RENAL/APPY Clinical Information: abdominal pain RLQ previous h/o inflammation Comparison: None Contrast: 100 cc's Isovue 370 IV, no complications or adverse reactions CT Dose Index (CTDI): 31.60 mGy Dose Length Product (DLP): 1740.80 total mGy-cm Findings: No evidence of nephro or ureterolithiasis is found. No hydronephrosis or ureteral dilatation is seen. The lung bases are clear. The stomach is unremarkable. It shows no wall thickening. No gross ulceration is seen. It is not overly distended. There are no surrounding inflammatory changes. No wall lesions are identified to suggest cancer. The spleen is unremarkable. It is not enlarged. The pancreas shows normal anatomy. It is not fatty replaced. It shows no lesions. The pancreatic duct is not dilated. The gallbladder is unremarkable. It shows no cholelithiasis. The gallbladder wall is normal in thickness. There is no pericholecystic fluid. The is no acute or chronic inflammation noted. The adrenal glands are unremarkable. There is no enlargement. No lesions are noted. The liver is unremarkable. It shows no focal masses. The appendix is unremarkable. It shows no evidence of inflammation. No appendicolith is seen. The small bowel is unremarkable. There is no evidence of dilatation to suggest obstruction. No evidence of adynamic ileus is seen. There is no small bowel wall thickening to suggest enteritis. The colon is unremarkable. The urinary bladder is unremarkable. There is no wall thickening to suggest tumor or inflammation. There are no intraluminal calculi. There are no diverticula. There is no evidence of chronic bladder outlet obstruction. There is no evidence of urinary bladder distention to suggest urinary retention. The other pelvic structures are unremarkable. The bony and vascular structures are unremarkable for the patient's age. IMPRESSION: NEGATIVE CT SCAN OF THE ABDOMEN AND PELVIS WITH ORAL AND IV CONTRAST. This study was performed using dose reduction techniques to include automated exposure control and/or adjustment of the mA and/or kV according to patient size.
[2024-09-04 09:23] LABS: AMPHET/METH SCREEN,URINE NEGATIVE (NEGATIVE); BARBITURATE SCREEN, URINE NEGATIVE (NEGATIVE); BENZODIAZEPINES SCREEN,URINE NEGATIVE (NEGATIVE); CANNABINOID SCREEN,URINE NEGATIVE (NEGATIVE); COCAINE SCREEN,URINE NEGATIVE (NEGATIVE); OPIATE SCREEN,URINE NEGATIVE (NEGATIVE); PHENCYCLIDINE SCREEN,URINE NEGATIVE (NEGATIVE)
[2024-09-04] MEDS: MAG/ALUM/SIMETH 30 ML UDCUP PO ONE (09:48)
[2024-09-04] MEDS: LIDOCAINE HCL 2% VISCOUS 15 ML UDCUP PO ONE (09:48)
[2024-09-04] MEDS: PANTOPrazole 40 MG/VIAL IVP ONE (09:49)
[2024-09-04 09:56] VITALS: BP 111/68; PULSE 89; RESP 16; TEMP 97.8; O2SAT 98
[2024-09-04] MEDS ORDERED: METR375C2 PO (10:06)
== END 2024-09-04 10:20 | disposition home or self-care (01) ==
LOC: EDH 05:35
DX: K52.9 Noninfective gastroenteritis and colitis, unspecified (principal); R11.2 Nausea with vomiting, unspecified; J45.909 Unspecified asthma, uncomplicated; Z98.890 Other specified postprocedural states; Z90.710 Acquired absence of both cervix and uterus; Z79.52 Long term (current) use of systemic steroids; Z88.8 Allergy status to other drugs, medicaments and biological substances
CPT/HCPCS: 99285; 74176; 96374; 96361; 96375 ×2; 80048; 80305; 83690; 85025; 81001; 81025; 36415; J2270; J7030; J2405; J2470

== ENCOUNTER 2024-11-23 18:33 | Emergency (ER) | payer MEDICAID ==
[~2024-11-23] VITALS: Ht 157.5 cm; Wt 77.6 kg
[~2024-11-23 18:33] MED LIST changes: +METR375C2 PO
--- NOTE | 2024-11-23 18:44 | ERN ---
ED Note History of Present Illness Stated Complaint: RIGHT FOOT INJURY Chief Complaint: Lower Extremity Pain/Injury Time Seen by MD: 18:35 Time Seen by Midlevel: 18:35 Dictation: The Patient is a 34-year-old female with a history of asthma, hysterectomy who presents to the emergency department with complaints right 5th toe pain and swelling onset a week and a half ago after she accidentally tripped over a sandal. No other injuries reported. Allergies: Coded Allergies: chlorpheniramine (Unverified Allergy, Unknown, 08/30/23) dextromethorphan (Unverified Allergy, Unknown, 08/30/23) pseudoephedrine (Unverified Allergy, Unknown, 08/30/23) Home Meds Active Scripts Metronidazole (Flagyl) 375 Mg Capsule, 500 MG PO BID for 7 Days, #14 CAP Prov:CELENA MICHAEL MD 09/04/24 Nystatin (Nystatin) 100,000 Unit/Ml Oral.susp, 5 ML PO QID for 7 Days, #140 ML 0 Refills Prov:GWEN GREGORIO MD 09/11/23 Ondansetron (Ondansetron Odt) 4 Mg Tab.rapdis, 4 MG PO TIDP PRN for NAUSEA, #30 TAB 0 Refills Prov:GWEN GREGORIO MD 09/11/23 Montelukast Sodium (Montelukast Sodium) 10 Mg Tablet, 10 MG PO HS for 30 Days, #30 TAB Prov:MARISABEL COOK 09/09/23 Prednisone (Prednisone) 10 Mg Tablet, 10 MG PO DAILY for 10mgx5 days followed 5mgx5, #5 TAB 0 Refills Prov:CELESTE TRINIDAD CNP 09/08/23 Prednisone (Prednisone) 5 Mg/5 Ml Solution, 5 MG PO DAILY, #5 ML 0 Refills Prov:CELESTE TRINIDAD CNP 09/08/23 Budesonide/Glycopyr/Formoterol (Breztri Aerosphere Inhaler) 160 Mcg-9 Mcg-4.8 Mcg/Actuation Hfa.aer.ad, 10.7 GM IH DAILY, #30 DAYS 0 Refills Prov:CELESTE TRINIDAD CNP 09/08/23 Albuterol Sulfate (Ventolin Hfa/Proventil Hfa/Proair Hfa) 90 Mcg/Puff Puff, 2 PUFF IH Q4H PRN for SHORTNESS OF BREATH/WHEEZING for 30 Days, #1 INH 2 Refills Prov:GLORIA KUO Sr., MD 03/01/23 Reported Medications Mirtazapine (Mirtazapine) 7.5 Mg Tablet, 1 TAB PO HS 08/30/23 Sertraline HCl (Sertraline HCl) 50 Mg Tablet, 50 MG PO DAILY 08/30/23 Past Medical History Past Medical History: Asthma Surgical History: Hysterectomy, None Surgical History Other: ABD HERNIA REPAIR Family History: HTN Social History: Negative History: Not Applicable : 8 Para: 6 Aborts: 2 RN Note Reviewed/Agreed w/PFSH: Yes Review of System Dictation Constitutional: Negative for fever,chills, and weight loss Eyes: Negative for injury, pain,redness, and discharge ENT: Negative for injury,pain or swelling Cardiovascular: Negative for chest pain, palpitations, and edema Respiratory: Negative for shortness of breath, cough, and wheezing, Abdomen/GI: Negative for abdominal pain, nausea, vomiting, diarrhea, and constipation Back: Negative for injury and pain : Negative for injury, bleeding and discharge MS/Extremity: Positive for right 5th toe injury, swelling Skin: Negative for rash, and discoloration Neuro: Negative for headache, weakness, numbness, tingling, and seizure Psych: Negative for suicide ideation, homicidal ideation, and hallucinations Initial Vital Sign VS Vital Signs Date Time Temp Pulse Resp B/P (MAP) Pulse Ox O2 Delivery O2 Flow Rate FiO2 11/23/24 18:35 98.4 86 16 114/67 98 Room Air 0 11/23/24 18:35 21 Physical Exam Dictation Vital Signs reviewed General Appearance: Alert, oriented x 3, no acute distress, well developed, nourished. Head and Face: non-traumatic. Eyes: PERRL, pink conjunctivas, eyelid no trauma, anterior chamber with arcus senilis. Ears: Pinnas intact and no signs of trauma or erythema ear canals clear and no discharge TM no erythema Nose: No discharge, no bleeding. Oropharynx: Mouth normal, tongue pink. pharynx clear,no erythema, tonsils no exudates, no abscesses noted, mucous membrane moist Neck: Supple, non-tender, no thyromegaly, no masses, no JVD, no bruits Breast:Deferred Chest:No tenderness, no crepitus, no paradoxical movement, no retractions Lungs:Clear, well-ventilated, symmetric, no rales, no wheezing, no rhonchi, no stridor, good breath sounds bilaterally Heart: Regular rate, regular rhythm, no murmur, no gallops Vascular: no peripheral edema, Abdomen: Soft, positive bowel sounds, nondistended, no guarding, nontender, no rebound, no masses no hepatomegaly, no splenomegaly, no Gomez's sign, no hernias. Rectal: Deferred Genital: Deferred Neurological: Normal speech, motor function intact, sensory function intact Musculoskeletal: Neck nontender, full range of motion, back nontender, full range of motion, Extremities: nontender, full range of motion , 5th right toe with swelling, no deformities, cap refill less than 2 sec. Skin: Color pink, dry, no turgor, no rash, no lacerations, no abrasions, no contusions. Lymphatic: Deferred Results (Laboratory/Radiology) Laboratory/Radiology REASON: injury 5th toe, swelling ORDERING PHYSICIAN: WILLY WILEY PROCEDURE: TOES RT - TOE(S) 2+VWS RT Exam Type: TOE(S) 2+VWS RT Clinical Information: injury 5th toe, swelling Comparison: None Findings: The bone examination is unremarkable. No fractures or dislocations are seen. No radiopaque foreign bodies are noted. Soft tissues are preserved. IMPRESSION: Normal examination. Labs Reviewed?: Yes ED Course ED Course Orders Procedure Category Date Status Time Toe(S) 2+Vws Rt RAD 11/23/24 Resulted 18:40 Ibuprofen 600 Mg PHA 11/23/24 Complete Tablet (Motrin) 19:00 Current Medications Medications (Trade) Dose Ordered Sig/Dominguez Route PRN Reason Start Time Stop Time Status Last Admin Dose Admin Ibuprofen (moTRIN) 600 mg ONCE ONCE PO 11/23/24 19:00 11/23/24 19:01 DC 11/23/24 18:50 Vital Signs Date Time Temp Pulse Resp B/P (MAP) Pulse Ox O2 Delivery O2 Flow Rate FiO2 11/23/24 19:49 98.4 85 16 120/68 99 Room Air* 0 21 11/23/24 18:35 98.4 86 16 114/67 99 Room Air* 0 21 11/23/24 18:35 98.4 86 16 114/67 98 Room Air 0 Medical Decision Making MDM The Patient is a 34-year-old female with a history of asthma, hysterectomy who presents to the emergency department with complaints right 5th toe pain and swelling onset a week and a half ago after she accidentally tripped over a sandal. No other injuries reported. Xray showed no fractures or dislocations. patient neurovascular intact. Will be discharge to follow up with pcp. Differential diagnosis: Toe contusion, toe fracture, toe dislocation Need for hospitalization: Patient does not meet criteria for hospitalization. There are no social concerns with this patient. DX & DISP Disposition: Discharge Departure Impression: Primary Impression: Contusion of toe, right Condition: Stable Additional Instructions: your Xray showed no fractures or dislocations.Follow up with your pcp in 1-2 days. If symptoms worsen please return to ER. FOLLOW-UP WITH PRIMARY CARE PROVIDER IN 1 TO 2 DAYS. TAKE MEDICATIONS DIRECTED HERE IN THE EMERGENCY ROOM. OKAY TO CONTINUE HOME MEDICATIONS UNLESS OTHERWISE DISCUSSED DURING YOUR VISIT IN THE EMERGENCY ROOM TODAY. RETURN TO YOUR NEAREST EMERGENCY ROOM IF SYMPTOMS WORSEN OR IF THERE IS NO IMPROVEMENT. CALL 911 IF YOU NEED IMMEDIATE ASSISTANCE. TAKE TYLENOL OR MOTRIN [id number] NEEDED AND IF NO CONTRAINDICATIONS ARE PRESENT. INCREASE ORAL HYDRATION. A WOUND CULTURE OR URINE CULTURE WAS ORDERED HERE IN THE EMERGENCY ROOM DEPARTMENT PLEASE FOLLOW-UP WITH PRIMARY CARE PROVIDER AND ADVISE THEM TO GET REPEAT PORTS FROM OUR FACILITY. IF YOU HAD ANY BROOKE WRAP/SPLINTS THAT WERE APPLIED HERE, PLEASE DO NOT REMOVE THEM UNTIL YOU SEE YOUR PRIMARY CARE OR SPECIALTY. Referrals: SELF,REFERRAL (PCP) Time of Disposition: 19:36 I have reviewed the case, and I agree with, Diagnosis and Plan WILLY WILEY Nov 23, 2024 18:44
[2024-11-23] MEDS: ibuPROFEN 600 MG TABLET PO ONE (18:50)
--- NOTE | 2024-11-23 19:18 | HMCIMG ---
Exam Type: TOE(S) 2+VWS RT Clinical Information: injury 5th toe, swelling Comparison: None Findings: The bone examination is unremarkable. No fractures or dislocations are seen. No radiopaque foreign bodies are noted. Soft tissues are preserved. IMPRESSION: Normal examination.
[2024-11-23 19:49] VITALS: BP 120/68; PULSE 85; RESP 16; TEMP 98.5; O2SAT 99
== END 2024-11-23 19:59 | disposition home or self-care (01) ==
LOC: EDH 18:33
DX: S90.121A Contusion of right lesser toe(s) without damage to nail, initial encounter (principal); J45.909 Unspecified asthma, uncomplicated; Z79.52 Long term (current) use of systemic steroids; Z90.710 Acquired absence of both cervix and uterus; Z98.890 Other specified postprocedural states; W01.0XXA Fall on same level from slipping, tripping and stumbling without subsequent striking against object, initial encounter; Y93.89 Activity, other specified; Y92.89 Other specified places as the place of occurrence of the external cause; Y99.8 Other external cause status
CPT/HCPCS: 73660; 99283

== ENCOUNTER 2025-02-09 08:50 | Emergency (ER) | payer MEDICAID ==
[~2025-02-09] VITALS: Ht 157.5 cm; Wt 81.6 kg
[2025-02-09 09:02] VITALS: TEMP 98.9
[2025-02-09 09:31] LABS: COVID19 (SARS ANTIGEN RAPID) PRESUMPTIVE NEGATIVE (NEGATIVE); INFLUENZA TYPE A Negative For Type A (NEGATIVE); INFLUENZA TYPE B Negative For Type B (NEGATIVE)
[2025-02-09 10:35] VITALS: BP 134/76; PULSE 88; RESP 20; O2SAT 99
[2025-02-09] MEDS ORDERED: ALBUHFA IH (10:55)
--- NOTE | 2025-02-09 10:56 | ERN ---
ED Note History of Present Illness Stated Complaint: RUNNY NOSE Chief Complaint: Congestion Time Seen by MD: 10:38 Time Seen by Midlevel: 10:39 Dictation: 34-year-old female presents to the emergency department due to reported having some sinus congestion around with a runny nose or that began approximately 2 days ago. She states that there is no confirmed fever associated with this. Patient states that she does have a history of allergies and does not know whether or not this might be related to it. She states that she did have a history of asthma for which she ran out of her inhaler but at this time she is not experiencing any as no related symptoms. Upon initial evaluation, the patient presents in no acute respiratory distress. Allergies: Coded Allergies: chlorpheniramine (Unverified Allergy, Unknown, 08/30/23) dextromethorphan (Unverified Allergy, Unknown, 08/30/23) pseudoephedrine (Unverified Allergy, Unknown, 08/30/23) Home Meds Active Scripts Albuterol Sulfate (Ventolin Hfa/Proventil Hfa/Proair Hfa) 90 Mcg Puff, 2 PUFF IH Q4H for WHEEZING, #1 INHALER 0 Refills Prov:ANGELES REYNOLDS 02/09/25 Metronidazole (Flagyl) 375 Mg Capsule, 500 MG PO BID for 7 Days, #14 CAP Prov:CELENA MICHAEL MD 09/04/24 Nystatin (Nystatin) 100,000 Unit/Ml Oral.susp, 5 ML PO QID for 7 Days, #140 ML 0 Refills Prov:GWEN GREGORIO MD 09/11/23 Ondansetron (Ondansetron Odt) 4 Mg Tab.rapdis, 4 MG PO TIDP PRN for NAUSEA, #30 TAB 0 Refills Prov:GWEN GREGORIO MD 09/11/23 Montelukast Sodium (Montelukast Sodium) 10 Mg Tablet, 10 MG PO HS for 30 Days, #30 TAB Prov:MARISABEL COOK 09/09/23 Prednisone (Prednisone) 10 Mg Tablet, 10 MG PO DAILY for 10mgx5 days followed 5mgx5, #5 TAB 0 Refills Prov:CELESTE TRINIDAD CNP 09/08/23 Prednisone (Prednisone) 5 Mg/5 Ml Solution, 5 MG PO DAILY, #5 ML 0 Refills Prov:CELESTE TRINIDAD [facility] 09/08/23 Budesonide/Glycopyr/Formoterol (Breztri Aerosphere Inhaler) 160 Mcg-9 Mcg-4.8 Mcg/Actuation Hfa.aer.ad, 10.7 GM IH DAILY, #30 DAYS 0 Refills Prov:CELESTE TRINIDAD [facility] 09/08/23 Albuterol Sulfate (Ventolin Hfa/Proventil Hfa/Proair Hfa) 90 Mcg/Puff Puff, 2 PUFF IH Q4H PRN for SHORTNESS OF BREATH/WHEEZING for 30 Days, #1 INH 2 Refills Prov:GLORIA KUO Sr., MD 03/01/23 Reported Medications Mirtazapine (Mirtazapine) 7.5 Mg Tablet, 1 TAB PO HS 08/30/23 Sertraline HCl (Sertraline HCl) 50 Mg Tablet, 50 MG PO DAILY 08/30/23 Past Medical History Past Medical History: Asthma Surgical History: Hysterectomy, None Surgical History Other: ABD HERNIA REPAIR Family History: HTN Social History: Negative History: Not Applicable : 8 Para: 6 Aborts: 2 Review of System Dictation ENT/Mouth: Runny nose Initial Vital Sign VS Vital Signs Date Time Temp Pulse Resp B/P (MAP) Pulse Ox O2 Delivery O2 Flow Rate FiO2 02/09/25 08:51 97.7 82 18 118/59 98 Room Air 02/09/25 09:02 0 21 Physical Exam Dictation General: awake, alert, NAD Head/Face: Normocephalic, atraumatic Eyes: PERRL, EOMI ENT: Oral mucosa moist, bilateral nasal congestion Neck: Trachea midline, supple Cardiovascular: RRR, no edema Respiratory: Symmetrical, non-labored Abdomen: Soft, non-tender, non-distended, no guarding. Skin: Warm, dry, good turgor, no rash MS/Extremity: Pulses equal, no cyanosis, neurovascular intact, FROM Neuro: COAx4, GCS 15, steady gait, Results (Laboratory/Radiology) Laboratory/Radiology Laboratory Tests Test 02/09/25 09:00 Influenza Type A Antigen Negative For Type A Influenza Type B Antigen Negative For Type B SARS-CoV-2 Antigen (Rapid) PRESUMPTIVE NEGATIVE Labs Reviewed?: Yes ED Course ED Course Orders Procedure Category Date Status Time Covid19 (Sars Antigen LAB 02/09/25 Complete Rapid) 08:56 Influenza Type A & B, LAB 02/09/25 Complete Rapid 08:56 Vital Signs Date Time Temp Pulse Resp B/P (MAP) Pulse Ox O2 Delivery O2 Flow Rate FiO2 02/09/25 10:35 88 20 134/76 99 Room Air* 0 21 02/09/25 09:02 99.0 89 20 132/84 97 Room Air* 0 21 02/09/25 08:51 97.7 82 18 118/59 98 Room Air Medical Decision Making MDM MDM: Differential diagnosis: Viral illness, influenza, COVID. Rationale: Tests considered and ordered secondary to shared decision making include: Previous outside records reviewed: Old ER visits. Risk of complication and/or morbidity or mortality of patient management: None Medications-Per medication reconciliation Need for hospitalization: Patient does not meet criteria for hospitalization. Need for emergency major/minor surgery: No There are no social concerns with this patient. Prescription drug management Prescriptions will include symptomatic care Patient's prior external medical records from other ER visits were reviewed by me as indicated. Prior testing and results from previous visits were reviewed. Prior tests were taken into account with medical decision making and resource utilization, independent historian/historians were used to obtain complete medical history. I independently interpreted the test that were performed, results were reviewed by me and considered findings on radiology if ordered. Medical management and examination interpretation discussions were had by me with other qualified healthcare professionals as indicated for the patient's care. DX & DISP Disposition: Discharge Departure Impression: Primary Impression: URI (upper respiratory infection) Condition: Stable Scripts Albuterol Sulfate (Ventolin Hfa/Proventil Hfa/Proair Hfa) 90 Mcg Puff 2 PUFF IH Q4H for WHEEZING, #1 INHALER 0 Refills Prov: ANGELES REYNOLDS 02/09/25 Referrals: SELF,REFERRAL (PCP) Time of Disposition: 10:56 I performed a substantive portion of the visit. I have reviewed and personally made and approve the management plan that is documented in the notes by myself with SHANKAR/resident. I acknowledged full responsibility for the patient's management plan. ANGELSE REYNOLDS Feb 09, 2025 10:56 MIKE GOMEZ DO Feb 09, 2025 11:22
== END 2025-02-09 11:02 | disposition home or self-care (01) ==
LOC: EDH 08:50
DX: J06.9 Acute upper respiratory infection, unspecified (principal); Z20.822 Contact with and (suspected) exposure to COVID-19; J45.909 Unspecified asthma, uncomplicated; Z88.8 Allergy status to other drugs, medicaments and biological substances; Z79.899 Other long term (current) drug therapy; Z79.52 Long term (current) use of systemic steroids; Z90.710 Acquired absence of both cervix and uterus; Z98.890 Other specified postprocedural states
CPT/HCPCS: 87426; 87804; 99283

== ENCOUNTER 2025-04-30 20:37 | Emergency (ER) | payer MEDICAID ==
[~2025-04-30] VITALS: Ht 157.5 cm; Wt 82.1 kg
[2025-04-30 20:57] LABS: NUCLEATED RED BLOOD CELLS 0.0 % (0.0-0.19); PLATELET COUNT (AUTO) 194 K/uL (130-400); RED BLOOD CELL COUNT(AUTO) 4.99 MIL/uL (4.00-5.50); RED CELL DISTRIBUTION WIDTH 13.4 % (11.0-15.5); WHITE BLOOD COUNT (AUTO) 12.3 K/uL (4.8-10.8)
[2025-04-30 21:01] LABS: IMMATURE GRANULOCYTE ABSOLUTE 0.09 K/uL (0-1)
[2025-04-30 21:05] LABS: CREATININE 0.7 mg/dL (0.5-1.0); GLOMERULAR FILTR. RATE CALC 116.0 mL/min (>90); GLUCOSE,RANDOM 119.0 mg/dL (70-105); SODIUM SERUM 134.0 mmol/L (136-145); UREA NITROGEN, BLOOD 12.0 mg/dL (7-18)
[2025-04-30] MEDS: MAGNESIUM 2GM PREMIX 50ML 50 ML IV SCH (21:11)
[2025-04-30] MEDS: MAGNESIUM 2GM PREMIX 50ML 50 ML IV ONE (21:11)
[2025-04-30 21:15] LABS: SARS-CoV-2, RNA, NAAT NEGATIVE SARS CoV-2 (NEGATIVE)
[2025-04-30 21:20] LABS: INFLUENZA TYPE A Negative For Type A (NEGATIVE); INFLUENZA TYPE B Negative For Type B (NEGATIVE)
[2025-04-30 21:24] VITALS: PULSE 95; RESP 17
--- NOTE | 2025-04-30 21:58 | HMCIMG ---
EXAM: CR Chest, 1 View. CLINICAL HISTORY: sob COMPARISON: None provided. FINDINGS: LUNGS: The lungs show no infiltrate or other acute finding. PLEURAL SPACES: No evidence of pleural effusion or pneumothorax. MEDIASTINUM: Cardiac size and mediastinal contours within normal limits. BONES: No aggressive appearing osseous lesion seen. IMPRESSION: No acute cardiopulmonary pathology is evident. /[place]
[2025-04-30 22:24] VITALS: PULSE 89; RESP 17
[2025-04-30] MEDS ORDERED: METH4TAB3 PO (22:51)
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
[2025-04-30 22:56] VITALS: BP 122/55; PULSE 88; RESP 17; TEMP 98.5; O2SAT 98
== END 2025-04-30 23:03 | disposition home or self-care (01) ==
LOC: EDH 20:37
DX: J45.901 Unspecified asthma with (acute) exacerbation (principal); Z20.822 Contact with and (suspected) exposure to COVID-19; Z79.52 Long term (current) use of systemic steroids; Z98.890 Other specified postprocedural states
CPT/HCPCS: 99285; 96365; 71045; 87635; 96366; 96375; 83735; 84484; 80048; 84703; 85025; 87804 ×2; 36415; 94640; J2919; J3475

== ENCOUNTER 2025-05-18 02:36 | Emergency (ER) | payer MEDICAID ==
[~2025-05-18] VITALS: Ht 157.5 cm; Wt 81.6 kg
[~2025-05-18 02:36] MED LIST changes: +METH4TAB3 PO
[2025-05-18 03:32] LABS: IMMATURE GRANULOCYTE ABSOLUTE 0.10 K/uL (0-1); NUCLEATED RED BLOOD CELLS 0.0 % (0.0-0.19); PLATELET COUNT (AUTO) 264 K/uL (130-400); RED BLOOD CELL COUNT(AUTO) 5.28 MIL/uL (4.00-5.50); RED CELL DISTRIBUTION WIDTH 13.7 % (11.0-15.5); WHITE BLOOD COUNT (AUTO) 11.2 K/uL (4.8-10.8)
[2025-05-18] MEDS: LIDOCAINE HCL 2% VISCOUS 15 ML UDCUP PO ONE (03:36)
[2025-05-18] MEDS: DICYCLOMINE HCL 10 MG/5 ML ML PO ONE (03:36)
[2025-05-18] MEDS: MAG/ALUM/SIMETH 30 ML UDCUP PO ONE (03:36)
[2025-05-18 03:41] LABS: CREATININE 0.7 mg/dL (0.5-1.0); GLOMERULAR FILTR. RATE CALC 116.0 mL/min (>90); GLUCOSE,RANDOM 88.0 mg/dL (70-105); SODIUM SERUM 137.0 mmol/L (136-145); UREA NITROGEN, BLOOD 12.0 mg/dL (7-18)
--- NOTE | 2025-05-18 03:44 | ERN ---
ED Note History of Present Illness Stated Complaint: ABD PAIN, N/V Chief Complaint: Abdominal Pain Time Seen by MD: 02:38 Dictation: This is a 34-year-old female who presented to the emergency room with complaints of abdominal pain nausea vomitings. 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 No hematemesis or melena. She stated that she vomited at least 6 times since 7:00 p.m.. No other family members are sick she does not have a known history of any pancreatitis in the past. She was gagging severely during my evaluation and attempting to vomit. No fever chills or rigors. history of constipation. Last BM was 3 days ago Temperature 98.1 pulse 104 respirations 20 blood pressure 116/68 with a pulse oximetry of 96% on room air She has a known history of hysterectomy and hernia repair she is a 8 Allergies: Coded Allergies: chlorpheniramine (Unverified Allergy, Unknown, 08/30/23) dextromethorphan (Unverified Allergy, Unknown, 08/30/23) pseudoephedrine (Unverified Allergy, Unknown, 08/30/23) Home Meds Active Scripts Ondansetron (Ondansetron Odt) 4 Mg Tab.rapdis, 4 MG PO Q6HPRN PRN for nausea, #16 TAB 0 Refills Prov:CORRIE DEL RIO MD 05/18/25 Methylprednisolone (Medrol) 4 Mg Tab.ds.pk, 1 TAB PO AD for 6 Days, #21 TAB 0 Refills 6 on day 1 then reduce by one tablet daily until gone Prov:CARLOS MUÑOZ PAC 04/30/25 Albuterol Sulfate (Ventolin Hfa/Proventil Hfa/Proair Hfa) 90 Mcg Puff, 2 PUFF IH Q4H for WHEEZING, #1 INHALER 0 Refills Prov:ANGELES REYNOLDS 02/09/25 Metronidazole (Flagyl) 375 Mg Capsule, 500 MG PO BID for 7 Days, #14 CAP Prov:CELENA MICHAEL MD 09/04/24 Nystatin (Nystatin) 100,000 Unit/Ml Oral.susp, 5 ML PO QID for 7 Days, #140 ML 0 Refills Prov:GWEN GREGORIO MD 09/11/23 Ondansetron (Ondansetron Odt) 4 Mg Tab.rapdis, 4 MG PO TIDP PRN for NAUSEA, #30 TAB 0 Refills Prov:GWEN GREGORIO MD 09/11/23 Montelukast Sodium (Montelukast Sodium) 10 Mg Tablet, 10 MG PO HS for 30 Days, #30 TAB Prov:MARISABEL COOK 09/09/23 Prednisone (Prednisone) 10 Mg Tablet, 10 MG PO DAILY for 10mgx5 days followed 5mgx5, #5 TAB 0 Refills Prov:CELESTE TRINIDAD [facility] 09/08/23 Prednisone (Prednisone) 5 Mg/5 Ml Solution, 5 MG PO DAILY, #5 ML 0 Refills Prov:CELESTE TRINIDAD [facility] 09/08/23 Budesonide/Glycopyr/Formoterol (Breztri Aerosphere Inhaler) 160 Mcg-9 Mcg-4.8 Mcg/Actuation Hfa.aer.ad, 10.7 GM IH DAILY, #30 DAYS 0 Refills Prov:CELESTE TRINIDAD CNP 09/08/23 Albuterol Sulfate (Ventolin Hfa/Proventil Hfa/Proair Hfa) 90 Mcg/Puff Puff, 2 PUFF IH Q4H PRN for SHORTNESS OF BREATH/WHEEZING for 30 Days, #1 INH 2 Refills Prov:GLORIA KUO Sr., MD 03/01/23 Reported Medications Mirtazapine (Mirtazapine) 7.5 Mg Tablet, 1 TAB PO HS 08/30/23 Sertraline HCl (Sertraline HCl) 50 Mg Tablet, 50 MG PO DAILY 08/30/23 Past Medical History Past Medical History: Asthma Surgical History: Hysterectomy, Other Surgical History Other: ABD HERNIA REPAIR, D AND C Family History: HTN Social History: Negative History: Not Applicable : 8 Para: 6 Aborts: 2 RN Note Reviewed/Agreed w/PFSH: Yes Review of System Dictation Constitutional: Negative for fever,chills, and weight loss Eyes: Negative for injury, pain,redness, and discharge ENT: Negative for injury,pain or swelling Cardiovascular: Negative for chest pain, palpitations, and edema Respiratory: Negative for shortness of breath, cough, and wheezing, Abdomen/GI: Positive for epigastric abdominal pain, nausea, vomiting, denied diarrhea, and constipation Back: Negative for injury and pain : Negative for injury, bleeding and discharge MS/Extremity: Negative for injury and deformity Skin: Negative for rash, and discoloration Neuro: Negative for headache, weakness, numbness, tingling, and seizure Psych: Negative for suicide ideation, homicidal ideation, and hallucinations Initial Vital Sign VS Vital Signs Date Time Temp Pulse Resp B/P (MAP) Pulse Ox O2 Delivery O2 Flow Rate FiO2 05/18/25 02:38 98.1 104 20 116/68 96 Room Air 05/18/25 02:48 0 21 Physical Exam Dictation General: awake, alert, NAD looks uncomfortable Head/Face: Normocephalic, atraumatic Eyes: PERRL, EOMI, vision at baseline ENT: oral cavity clear, TMs clear, no signs of infection Neck: Trachea midline, supple, no nuchal rigidity Cardiovascular: RRR, normal S1/S2, No MRGs, no JVD Respiratory: CTAB, no respiratory distress, No rales or wheezes Abdomen: Soft, non-tender, non-distended, normal bowel sounds, no guarding or rebound. Skin: Warm, dry, normal turgor, no rash MS/Extremity: Pulses equal, no cyanosis, neurovascular intact, FROM Neuro: COAx4, GCS 15, strength 5/5, CN 2-12 intact, normal cerebellar exam, normal gait, Psych: Normal behavior, mood, and affect normal Extremities-trace edema without any palpable cords, Homans sign is negative Results (Laboratory/Radiology) Laboratory/Radiology Laboratory Tests Test 05/18/25 03:22 White Blood Count 11.2 K/uL (4.8-10.8) H Red Blood Count 5.28 MIL/uL (4.00-5.50) Hemoglobin 14.4 g/dL (12.0-16.0) Hematocrit 43.2 % (36-48) Mean Corpuscular Volume 81.8 fL (79-99) Mean Corpuscular Hemoglobin 27.3 pg (27.0-33.0) Mean Corpuscular Hemoglobin Concent 33.3 g/dL (32.0-36.0) Red Cell Distribution Width 13.7 % (11.0-15.5) Platelet Count 264 K/uL (130-400) Mean Platelet Volume 10.9 fL (7.5-10.5) H Immature Granulocyte % (Auto) 0.9 % (0-1) Neutrophils (%) (Auto) 61.1 % (40.0-77.0) Lymphocytes (%) (Auto) 25.9 % (21.0-51.0) Monocytes (%) (Auto) 6.7 % (3.0-13.0) Eosinophils (%) (Auto) 4.6 % (0.0-8.0) Basophils (%) (Auto) 0.8 % (0.0-5.0) Neutrophils # (Auto) 6.9 K/uL (1.8-7.7) Lymphocytes # (Auto) 2.9 K/uL (1.0-4.8) Monocytes # (Auto) 0.8 K/uL (0.1-1.0) Eosinophils # (Auto) 0.52 K/uL (0.00-0.70) Basophils # (Auto) 0.09 K/uL (0.00-0.20) Absolute Immature Granulocyte (auto 0.10 K/uL (0-1) Nucleated Red Blood Cells 0.0 % (0.0-0.19) Sodium Level 137 mmol/L (136-145) Potassium Level 3.5 mmol/L (3.5-5.1) Chloride Level 102 mmol/L (101-111) Carbon Dioxide Level 25 mmol/L (21-32) Blood Urea Nitrogen 12 mg/dL (7-18) Creatinine 0.7 mg/dL (0.5-1.0) Glomerular Filtration Rate Calc 116 mL/min (>90) Random Glucose 88 mg/dL (70-105) Total Calcium 8.2 mg/dL (8.5-10.1) L Lipase 25 U/L (16-77) Human Chorionic Gonadotropin, Quant 0 mIU/mL (0-5) Labs Reviewed?: Yes ED Course ED Course Orders Procedure Category Date Status Time Cbc With Differential LAB 05/18/25 Complete 03:24 Hcg,Quantitative LAB 05/18/25 Complete 03:24 Ondansetron 4mg Inj PHA 05/18/25 Complete (Zofran 4mg Inj) 03:30 Lidocaine Hcl 2% PHA 11/28/25 Complete Viscous (Lidocaine Hcl 03:30 Mag/Alum/Simeth 30ml PHA 05/18/25 Complete (Maalox Plus 30ml) 03:30 Dicyclomine Hcl PHA 05/18/25 Complete (Bentyl 10mg/5ml 03:30 Lipase LAB 05/18/25 Complete 03:24 Basic Metabolic Panel LAB 05/18/25 Complete 03:24 Ketorolac PHA 05/18/25 Complete Tromethamine 30mg/Ml 04:00 Prochlorperazine PHA 05/18/25 Complete 10mg/2ml Inj 05:00 0.9%Nacl 1000ml (Ns PHA 05/18/25 Complete 1000ml) 05:00 Current Medications Medications (Trade) Dose Ordered Sig/Dominguez Route PRN Reason Start Time Stop Time Status Last Admin Dose Admin Al Hydroxide/Mg Hydroxide (MAALox PLUS 30ML) 30 ml ONCE ONCE PO 05/18/25 03:30 05/18/25 03:31 DC Dicyclomine HCl (Bentyl 10mg/5ml Syrup) 10 mg ONCE ONCE PO 05/18/25 03:30 05/18/25 03:31 DC Ketorolac Tromethamine (toRADol) 30 mg ONCE ONCE IVP 05/18/25 04:00 05/18/25 04:01 DC 05/18/25 03:55 Lidocaine HCl (Lidocaine HCl 2% Viscous) 10 ml ONCE ONCE PO 05/18/25 03:30 05/18/25 03:31 DC Ondansetron HCl (zoFRAN 4MG INJ) 4 mg ONCE ONCE IVP 05/18/25 03:30 05/18/25 03:31 DC 05/18/25 03:36 Prochlorperazine Edisylate (Compazine 10mg/ 2ml Inj) 10 mg ONCE ONCE IV 05/18/25 05:00 05/18/25 05:01 DC 05/18/25 04:51 Sodium Chloride 1,000 ml @ 0 mls/hr ONCE ONCE IV 05/18/25 05:00 05/18/25 05:01 DC 05/18/25 04:51 Vital Signs Date Time Temp Pulse Resp B/P (MAP) Pulse Ox O2 Delivery O2 Flow Rate FiO2 05/18/25 07:14 97.3 78 18 103/40 97 Room Air* 0 21 05/18/25 06:46 97.3 78 18 97/56 96 Room Air* 0 21 05/18/25 05:19 97.3 85 18 103/53 96 Room Air* 0 21 05/18/25 02:48 97.3 94 18 110/68 95 Room Air* 0 21 05/18/25 02:38 98.1 104 20 116/68 96 Room Air Medical Decision Making MDM Differential diagnosis: Alcohol intoxication, Gastritis, esophagitis, gastroesophageal reflux disease, acute cholecystitis, peptic ulcer disease, gastroenteritis, colitis, constipation, pancreatitis This is a 34-year-old female who presented to the emergency room with complaints of abdominal pain nausea vomitings. Apparently she was cooking for the entire family for [employer] and had some Smirnoff (vodka) and she started with a having epigastric abdominal pain and profound nausea vomitings. No hematemesis or melena. She stated that she vomited at least 6 times since 7:00 p.m.. No other family members are sick she does not have a known history of any pancreatitis in the past. She was gagging severely during my evaluation and attempting to vomit. No fever chills or rigors. No history of any constipation. Temperature 98.1 pulse 104 respirations 20 blood pressure 116/68 with a pulse oximetry of 96% on room air She has a known history of hysterectomy and hernia repair she is a 8 Patient was initiated on hydration and antiemetics. 3:40 a.m. CBC showed a white count of 11.2. 3:57 a.m. BNP 7 is normal lipase is normal. I updated the patient on all the labs and a benign abdominal exam and there is no current indication for any additional evaluation at this time. I explained to her that this may simply be related to the alcohol intake on an empty stomach and she verbalized full understanding Rationale: Tests considered and ordered secondary to shared decision making include: Labs Previous outside records reviewed: Old ER visits. Risk of complication and/or morbidity or mortality of patient management: None Medications-Per medication reconciliation Need for hospitalization: Patient does not meet criteria for hospitalization. Need for emergency major/minor surgery: No There are no social concerns with this patient. Prescription drug management Prescriptions will include symptomatic care Patient's prior external medical records from other ER visits were reviewed by me as indicated. Prior testing and results from previous visits were reviewed. Prior tests were taken into account with medical decision making and resource utilization, independent historian/historians were used to obtain complete medical history. I independently interpreted the test that were performed, results were reviewed by me and considered findings on radiology if ordered. Medical management and examination interpretation discussions were had by me with other qualified healthcare professionals as indicated for the patient's care. Problem List Problem List: (1) Nausea and vomiting (2) Epigastric abdominal pain (3) Gastroenteritis DX & DISP Disposition: Discharge Departure Impression: Primary Impression: Gastroenteritis Additional Impressions: Nausea and vomiting, Epigastric abdominal pain Condition: Stable Scripts Ondansetron (Ondansetron Odt) 4 Mg Tab.rapdis 4 MG PO Q6HPRN PRN for nausea, #16 TAB 0 Refills Prov: CORRIE DEL RIO MD 05/18/25 Additional Instructions: Patient and the caregiver have been informed of all the diagnostic tests and the imaging conducted during the today's visit to the emergency room and has verbalized understanding of the results I have personally reviewed and interpreted all diagnostic exams performed here in the ER today as well as the vital signs documented by the nursing staff. The patient is now being discharged to home and should follow up with the primary care physician or the specialist as directed by the ER staff. Referrals: SELF,REFERRAL (PCP) CORRIE DEL RIO MD May 18, 2025 03:44
[2025-05-18 03:58] LABS: HCG,QUANTITATIVE 0.0 mIU/mL (0-5)
[2025-05-18] MEDS: PROCHLORPERAZINE 10MG/2ML INJ IV ONE (04:51)
[2025-05-18] MEDS: 0.9%NACL 1000ML 1,000 ML IV ONE (04:51)
[2025-05-18 07:14] VITALS: BP 103/40; PULSE 78; RESP 18; TEMP 97.3; O2SAT 97
[2025-05-18] MEDS ORDERED: ONDA-243 PO (07:23)
== END 2025-05-18 08:02 | disposition home or self-care (01) ==
LOC: EDH 02:36
DX: K52.9 Noninfective gastroenteritis and colitis, unspecified (principal); R11.2 Nausea with vomiting, unspecified; Z79.52 Long term (current) use of systemic steroids; J45.909 Unspecified asthma, uncomplicated; R10.13 Epigastric pain; Z90.710 Acquired absence of both cervix and uterus; Z98.890 Other specified postprocedural states
CPT/HCPCS: 99285; 96374; 96375; 80048; 84702; 83690; 85025; 36415; J1885; J7030; J0780; J2405

== ENCOUNTER 2025-06-19 05:20 | Observation (INO) | payer MEDICAID ==
[2025-06-19] VITALS (22 sets, daily range): BP systolic 100–111; BP diastolic 53–68; PULSE 63–98; RESP 14–20; TEMP 97–97.8; O2SAT 98–99
[~2025-06-19] VITALS: Ht 157.5 cm; Wt 79.4 kg
[2025-06-19 05:49] LABS: APPEARANCE,URINE CLOUDY (CLEAR); GLUCOSE, URINE (UA) NEGATIVE (NEGATIVE); LEUKOCYTE ESTERASE ,URINE NEGATIVE Leu/uL (NEGATIVE); NITRATE,URINE NEGATIVE (NEGATIVE); OCCULT BLOOD,URINE +- (TRACE) (NEGATIVE)
[2025-06-19 05:51] LABS: ADD UA MICROSCOPIC YES
[2025-06-19] MEDS: 0.9%NACL 1000ML 1,000 ML IV ONE (05:57)
[2025-06-19 05:59] LABS: IMMATURE GRANULOCYTE ABSOLUTE 0.07 K/uL (0-1); NUCLEATED RED BLOOD CELLS 0.0 % (0.0-0.19); PLATELET COUNT (AUTO) 237 K/uL (130-400); RED BLOOD CELL COUNT(AUTO) 5.48 MIL/uL (4.00-5.50); RED CELL DISTRIBUTION WIDTH 13.9 % (11.0-15.5); WHITE BLOOD COUNT (AUTO) 18.2 K/uL (4.8-10.8)
[2025-06-19 06:00] LABS: SQUAMOUS EPITHELIAL CELL,UR RARE /HPF (0-2)
[2025-06-19 06:15] LABS: ASPARTATE AMINOTRANSFERASE 17.0 U/L (10-37); CREATININE 0.6 mg/dL (0.5-1.0); GLOMERULAR FILTR. RATE CALC 121.0 mL/min (>90); GLUCOSE,RANDOM 91.0 mg/dL (70-105); SODIUM SERUM 142.0 mmol/L (136-145); TOTAL PROTEIN, SERUM 7.6 g/dL (6.0-8.3); UREA NITROGEN, BLOOD 8.0 mg/dL (7-18)
[2025-06-19 06:23] LABS: INFLUENZA TYPE A Negative For Type A (NEGATIVE); INFLUENZA TYPE B Negative For Type B (NEGATIVE)
--- NOTE | 2025-06-19 06:30 | ERN ---
General Chief Complaint: Abdominal Pain Stated Complaint: C/O ABD PAIN W/N X V AFTER TAKING MOUNJARO Time Seen by MD: 05:22 Source: patient History of Present Illness Initial Comments Patient is a 34-year-old female coming in complaining of generalized abdominal pain. Per patient she took Mounjaro which was not prescribed to her and states he started having abdominal discomfort. aLong with the abdominal discomfort she has been having nauseousness and vomiting. Allergies: Coded Allergies: chlorpheniramine (Unverified Allergy, Unknown, 08/30/23) dextromethorphan (Unverified Allergy, Unknown, 08/30/23) pseudoephedrine (Unverified Allergy, Unknown, 08/30/23) Home Meds Active Scripts Ondansetron (Ondansetron Odt) 4 Mg Tab.rapdis, 4 MG PO Q6HPRN PRN for nausea, #16 TAB 0 Refills Prov:CORRIE DEL RIO MD 05/18/25 Methylprednisolone (Medrol) 4 Mg Tab.ds.pk, 1 TAB PO AD for 6 Days, #21 TAB 0 Refills 6 on day 1 then reduce by one tablet daily until gone Prov:CARLOS MÑUOZ PAC 04/30/25 Albuterol Sulfate (Ventolin Hfa/Proventil Hfa/Proair Hfa) 90 Mcg Puff, 2 PUFF IH Q4H for WHEEZING, #1 INHALER 0 Refills Prov:ANGELES REYNOLDS 02/09/25 Metronidazole (Flagyl) 375 Mg Capsule, 500 MG PO BID for 7 Days, #14 CAP Prov:CELENA MICHAEL MD 09/04/24 Nystatin (Nystatin) 100,000 Unit/Ml Oral.susp, 5 ML PO QID for 7 Days, #140 ML 0 Refills Prov:GWEN GREGORIO MD 09/11/23 Ondansetron (Ondansetron Odt) 4 Mg Tab.rapdis, 4 MG PO TIDP PRN for NAUSEA, #30 TAB 0 Refills Prov:GWEN GREGORIO MD 09/11/23 Montelukast Sodium (Montelukast Sodium) 10 Mg Tablet, 10 MG PO HS for 30 Days, #30 TAB Prov:MARISABEL COOK PAC 09/09/23 Prednisone (Prednisone) 10 Mg Tablet, 10 MG PO DAILY for 10mgx5 days followed 5mgx5, #5 TAB 0 Refills Prov:CELESTE TRINIDAD [facility] 09/08/23 Prednisone (Prednisone) 5 Mg/5 Ml Solution, 5 MG PO DAILY, #5 ML 0 Refills Prov:CELESTE TRINIDAD [facility] 09/08/23 Budesonide/Glycopyr/Formoterol (Breztri Aerosphere Inhaler) 160 Mcg-9 Mcg-4.8 Mcg/Actuation Hfa.aer.ad, 10.7 GM IH DAILY, #30 DAYS 0 Refills Prov:CELESTE TRINIDAD [facility] 09/08/23 Albuterol Sulfate (Ventolin Hfa/Proventil Hfa/Proair Hfa) 90 Mcg/Puff Puff, 2 PUFF IH Q4H PRN for SHORTNESS OF BREATH/WHEEZING for 30 Days, #1 INH 2 Refills Prov:GLORIA UKO Sr., MD 03/01/23 Reported Medications Mirtazapine (Mirtazapine) 7.5 Mg Tablet, 1 TAB PO HS 08/30/23 Sertraline HCl (Sertraline HCl) 50 Mg Tablet, 50 MG PO DAILY 08/30/23 Past Medical History Past Medical History: No Pertinent History, Asthma Past Surgical History: Hysterectomy, Other Surgical History Other: HERNIA REPAIR Family History Family History: HTN Social History Social History: Negative Female( History) History: Not Applicable : 8 Para: 6 Aborts: 2 ROS Dictation CONSTITUTIONAL: No chills, no fever, no weakness, no diaphoresis, no malaise. HEAD/FACE: No signs of trauma. EENT: No eye pain, no blurred vision, no tearing, no double vision, no ear pain, no ear discharge, no nose pain, no nasal congestion, no throat pain, no throat swelling, no mouth pain. RESPIRATORY: No cough, no orthopnea, no SOB, no stridor, no wheezing. CARDIOVASCULAR: No chest pain, no edema, no palpitations, no syncope. GASTROINTESTINAL/ABDOMINAL: abdominal pain, no constipation, no diarrhea, nausea, vomiting. GENITOURINARY: No abnormal discharge, no dysuria, no frequent urination, no hematuria. No complaints of pain in the genitals. MUSCULOSKELETAL: No back pain, no gout, no joint pain, no joint swelling, no muscle pain, no muscle stiffness, no neck pain. INTEGUMENTARY: No change in color, no change in hair/nails, no dryness, no lesion, no lumps, no rash. NEUROLOGICAL/PSYCH: No anxiety, not depressed, no emotional problem, no headache, no numbness, no pre-existing deficit, no history of seizures, no tremors, no weakness. HEMATOLOGIC/LYMPHATIC: Not anemic, no history of blood clots, no apparent b leeding, no bruising, glands not swollen. All Systems Negative, Except as Noted. Physical Exam Physical Exam Dictation VITAL SIGNS: Reviewed. GENERAL APPEARANCE: Alert, oriented x3, no acute distress, obese. HEAD AND FACE: Non-traumatic. EYES: PERRL, pink conjunctivas, eyelid no trauma, anterior chamber clear. EARS: Pinnas intact and no signs of trauma or erythema. Ear canals clear and no discharge. TMs no erythema. NOSE: No discharge, no bleeding. OROPHARYNX: Mouth normal, teeth no caries, tongue pink. Pharynx clear, no erythema. Tonsils no exudates, no abscesses noted. Mucous membrane moist. NECK: Supple, non-tender, no thyromegaly, no masses, no JVD, no bruits. BREAST: Deferred. CHEST: No tenderness, no crepitus, no paradoxical movement, no retractions. LUNGS: Clear, well-ventilated, symmetric, no rales, no wheezing, no rhonchi, no stridor, good breath sounds bilaterally. HEART: Regular rate, regular rhythm, no murmur, no gallops. VASCULAR: No peripheral edema. ABDOMEN: Soft, positive bowel sounds, nondistended, no guarding, nontender, no rebound, no masses no hepatomegaly, no splenomegaly, no Gomez's sign, no hernias. RECTAL: Deferred. GENITAL: Deferred. NEUROLOGICAL: Normal speech, gross motor function intact, gross sensory function intact. MUSCULOSKELETAL: Neck nontender, full range of motion, back nontender, full ra nge of motion. EXTREMITIES: Nontender, full range of motion. SKIN: Color pink, dry, no turgor, no rash, no lacerations, no abrasions, no contusions. LYMPHATICS: Deferred. Results Laboratory and Microbiology Lab and Micro Result Laboratory Tests Test 06/19/25 05:31 06/19/25 05:50 06/19/25 05:52 Urine Color LIGHT-YELLOW (YELLOW) Urine Appearance CLOUDY (CLEAR) H Urine pH 8.5 (5.0-8.0) H Urine Specific [place] 1.018 (1.001-1.031) Urine Protein NEGATIVE mg/dL (NEGATIVE) Urine Glucose (UA) NEGATIVE mg/dL (NEGATIVE) Urine Ketones NEGATIVE mg/dL (NEGATIVE) Urine Occult Blood +- (TRACE) (NEGATIVE) H Urine Nitrate NEGATIVE (NEGATIVE) Urine Bilirubin NEGATIVE mg/dL (NEGATIVE) Urine Urobilinogen 0.2 mg/dL (0.2-1.0) Urine Leukocyte Esterase NEGATIVE Maryuri/uL Urine RBC 2-5 /HPF (0-1) H Urine WBC 0-1 /HPF (0-1) Urine Squamous Epithelial Cells RARE /HPF (0-2) Urine Amorphous Crystals (Auto) RARE /LPF (None Seen) Urine Bacteria FEW /HPF (None Seen) White Blood Count 18.2 K/uL (4.8-10.8) H Red Blood Count 5.48 MIL/uL (4.00-5.50) Hemoglobin 14.9 g/dL (12.0-16.0) Hematocrit 45.2 % (36-48) Mean Corpuscular Volume 82.5 fL (79-99) Mean Corpuscular Hemoglobin 27.2 pg (27.0-33.0) Mean Corpuscular Hemoglobin Concent 33.0 g/dL (32.0-36.0) Red Cell Distribution Width 13.9 % (11.0-15.5) Platelet Count 237 K/uL (130-400) Mean Platelet Volume 11.5 fL (7.5-10.5) H Immature Granulocyte % (Auto) 0.4 % (0-1) Neutrophils (%) (Auto) 85.4 % (40.0-77.0) H Lymphocytes (%) (Auto) 8.5 % (21.0-51.0) L Monocytes (%) (Auto) 3.5 % (3.0-13.0) Eosinophils (%) (Auto) 2.0 % (0.0-8.0) Basophils (%) (Auto) 0.2 % (0.0-5.0) Neutrophils # (Auto) 15.6 K/uL (1.8-7.7) H Lymphocytes # (Auto) 1.6 K/uL (1.0-4.8) Monocytes # (Auto) 0.6 K/uL (0.1-1.0) Eosinophils # (Auto) 0.37 K/uL (0.00-0.70) Basophils # (Auto) 0.04 K/uL (0.00-0.20) Absolute Immature Granulocyte (auto 0.07 K/uL (0-1) Nucleated Red Blood Cells 0.0 % (0.0-0.19) White Cell Morphology Comment See comments Sodium Level 142 mmol/L (136-145) Potassium Level 3.6 mmol/L (3.5-5.1) Chloride Level 108 mmol/L (101-111) Carbon Dioxide Level 23 mmol/L (21-32) Blood Urea Nitrogen 8 mg/dL (7-18) Creatinine 0.6 mg/dL (0.5-1.0) Glomerular Filtration Rate Calc 121 mL/min (>90) Random Glucose 91 mg/dL (70-105) Total Calcium 7.9 mg/dL (8.5-10.1) L Total Bilirubin 0.6 mg/dL (0.2-1.0) Aspartate Amino Transf (AST/SGOT) 17 U/L (10-37) Alanine Aminotransferase (ALT/SGPT) 45 U/L (12-78) Alkaline Phosphatase 99 U/L (50-136) Total Protein 7.6 g/dL (6.0-8.3) Albumin 3.7 g/dL (3.5-5.0) Lipase 31 U/L (16-77) Serum Test, Qualitative NEGATIVE (NEGATIVE) Influenza Type A Antigen Negative For Type A Influenza Type B Antigen Negative For Type B Labs Reviewed?: Yes MDM MDM: Differential diagnosis: Abdominal pain Rationale: Tests considered and ordered secondary to shared decision making include: Previous outside records reviewed: Old ER visits. Risk of complication and/or morbidity or mortality of patient management: None Medications-Per medication reconciliation Need for hospitalization: Patient does not meet criteria for hospitalization. Need for emergency major/minor surgery: No There are no social concerns with this patient. Prescription drug management Prescriptions will include symptomatic care Patient's prior external medical records from other ER visits were reviewed by me as indicated. Prior testing and results from previous visits were reviewed. Prior tests were taken into account with medical decision making and resource utilization, independent historian/historians were used to obtain complete medical history. I independently interpreted the test that were performed, results were reviewed by me and considered findings on radiology if ordered. Medical management and examination interpretation discussions were had by me with other qualified healthcare professionals as indicated for the patient's care. ED Course Orders Procedure Category Date Status Time Cbc With Differential LAB 06/19/25 Complete 05:27 Comprehensive LAB 06/19/25 Complete Metabolic Panel 05:27 Urinalysis Profile LAB 06/19/25 Complete 05:27 0.9%Nacl 1000ml (Ns PHA 06/19/25 Complete 1000ml) 05:30 Ondansetron 4mg Inj PHA 06/19/25 Complete (Zofran 4mg Inj) 05:30 Pantoprazole 40mg Inj PHA 06/19/25 Complete (Protonix 40mg Inj 05:30 Lipase LAB 06/19/25 Complete 05:27 Influenza Type A & B, LAB 06/19/25 Complete Rapid 05:30 Testing, LAB 06/19/25 Complete Serum Hcg 06:17 Ct Abdomen/Pelvis W/O CT 06/19/25 Resulted Contrast 06:20 Ceftriaxone 1g Vial PHA 06/19/25 Complete (Rocephine 1g Inj) 07:30 Current Medications Medications (Trade) Dose Ordered Sig/Dominguez Route PRN Reason Start Time Stop Time Status Last Admin Dose Admin Ceftriaxone Sodium (ROCEphine 1G INJ) 1 gm ONCE ONCE IVPB 06/19/25 07:30 06/19/25 07:31 DC Ondansetron HCl (zoFRAN 4MG INJ) 4 mg ONCE ONCE IVP 06/19/25 05:30 06/19/25 05:38 DC 06/19/25 05:57 Pantoprazole Sodium (PROTonix 40MG INJ) 40 mg ONCE ONCE IVP 06/19/25 05:30 06/19/25 05:38 DC 06/19/25 05:57 Sodium Chloride 1,000 ml @ 0 mls/hr ONCE ONCE IV 06/19/25 05:30 06/19/25 05:38 DC 06/19/25 05:57 Vital Signs Date Time Temp Pulse Resp B/P (MAP) Pulse Ox O2 Delivery O2 Flow Rate FiO2 06/19/25 06:03 97.9 82 18 116/60 98 Room Air* 0 21 06/19/25 05:22 97.5 87 20 115/55 97 Room Air DX & DISP Disposition: Inpatient Departure Impression: Primary Impression: Appendicitis Condition: Stable Referrals: SELF,REFERRAL (PCP) CELENA MICHAEL MD Jun 19, 2025 06:30 AJ PRATHER MD Jun 19, 2025 07:37
--- NOTE | 2025-06-19 07:20 | HMCIMG ---
EXAM: CT Abdomen and Pelvis Without IV contrast CLINICAL HISTORY: Abdominal pain. TECHNIQUE: Axial computed tomography images of the abdomen and pelvis without intravenous contrast. CONTRAST: No IV contrast. COMPARISON: CT abdomen and pelvis dated 09/04/2024. FINDINGS: LUNG BASES: The lung bases appear clear. No pleural effusions are seen. LIVER: Unremarkable. GALLBLADDER AND BILE DUCTS: The gallbladder appears within normal limits. No radioopaque gallstones are seen. No biliary ductal dilatation is evident. PANCREAS: Unremarkable. SPLEEN: Unremarkable. ADRENAL GLANDS: Unremarkable. KIDNEYS, URETERS, AND BLADDER: The kidneys appear within normal limits. There is no hydronephrosis or hydroureter. A 2 mm concretion is seen at the lower pole of the right kidney. STOMACH AND BOWEL: Unremarkable appearance of the stomach and bowel. No evidence of bowel obstruction. No evidence suggesting enteritis or colitis. APPENDIX: The appendix appears prominent, measuring 8-9 mm. There is mild periappendiceal fat stranding surrounding the appendicular tip, likely representing changes of acute appendicitis. No periappendiceal fluid. PERITONEUM: No free fluid. No free air. LYMPH NODES: No lymphadenopathy is evident. REPRODUCTIVE: The uterus is surgically absent. Bilateral ovaries are unremarkable as visualized. VASCULATURE: No evidence of abdominal aortic aneurysm. BONES: No aggressive appearing osseous lesion. No acute osseous pathology evident. IMPRESSION: Prominent appendix measuring 8-9 mm with mild periappendiceal fat stranding surrounding the appendicular tip, likely representing changes of acute appendicitis. Correlation with clinical setting and laboratory parameters is recommended. Small focus of air in the subcutaneous plane of the anterior abdominal wall on the right, measuring 5.3 mm, likely iatrogenic, possibly due to subcutaneous injections. Stable, 2 mm concretion at the lower pole of the right kidney. In comparison to the prior study, changes of acute appendicitis seen in the present scan were not seen previously. Resolution of previously seen left ovarian cyst and resolution of previously seen minimal free fluid in the pelvis. /Shiva
[2025-06-19] MEDS: LACTATED RINGERS 1000ML 1,000 ML IV SCH (08:14)
[2025-06-19] MEDS: BUDESONIDE 0.5 MG/2 ML INH IH SCH (08:17)
--- NOTE | 2025-06-19 08:24 | HP ---
[facility] HISTORY AND PHYSICAL Date of Service: Jun 19, 2025 Time of Service: 08:17 HISTORY OF PRESENT ILLNESS: Date of service: 06/19/2025, patient was seen in ER room five This is a 34-year-old female with underlying history of anxiety, history of asthma, who presented to the ER for further evaluation of severe lower abdominal pain with associated nausea and vomiting. Patient states that she took Mounjaro 1st time yesterday to assist with weight loss. She was prescribed this medication from [place]. She denies any history of type 2 diabetes mellitus. She she took the medication close to 6:00 a.m. yesterday, around 11:00 a.m. she felt nauseous and starting last night, she had multiple episodes of vomiting and worsening progressive lower abdominal/periumbilical pain. Pain this morning was 10/10 in severity. She reports having poor oral intake. She reports having history of asthma and takes albuterol inhaler PRN. She denies having significant wheezing currently on interview. She denies any chest pain. On presentation to the hospital, patient was noted to be afebrile with T-max of 97.5 F, heart rate of 87, blood pressure of 115/55. [place] [address] with bandemia, hemoglobin of 14.9, platelet count of 826619. BMP showed sodium 142, potassium 3.6, chloride of 108, calcium 7.9, serum test was noted to be negative. Patient underwent CT abdomen pelvis without contrast which showed prominent appendix measuring 8-9 mm with periappendiceal fat stranding concerning for developing acute appendicitis. Patient will be admitted under hospitalist service and will be started on IV fluid hydration, IV antibiotics and pain control, patient will be kept strictly NPO and consultation with General surgery will be requested to assess for developing acute appendicitis and evaluation for appendectomy. Plan of care was discussed with patient at bedside REVIEW OF SYSTEMS CONSTITUTIONAL: Denies fevers, chills, or night sweats. No unintentional weight loss reported. NEUROLOGICAL: Denies headache, amaurosis fugax, motor weakness, sensory deficit, vertigo/spinning sensation, gait abnormalities, or tremors. ENT: No hearing loss, otalgia, otorrhea, rhinitis, rhinorrhea, hoarseness, or sore throat. CARDIOVASCULAR: Denies any exertional angina, dyspnea on exertion, orthopnea, paroxysmal nocturnal dyspnea, palpitations, life-threatening arrhythmias, claudication. PULMONARY: Denies any shortness of breath, cough, phlegm/sputum, hemoptysis, pleuritic chest pain. SLEEP: Denies morning headaches, daytime somnolence or napping. Denies difficulty falling asleep, staying asleep, waking from sleep. Denies knowledge of snoring. GASTROINTESTINAL: nausea, vomiting, abdominal pain, reports taking Mounjaro yesterday morning close to 6:00 a.m. GENITOURINARY: Denies frequency, urgency, nocturia, hematuria or incontinence (Storage/Irritative symptoms.) Low urinary stream, straining to void, urinary intermittency or hesitancy, splitting of the voiding stream, terminal dribbling. ENDOCRINOLOGIC: Denies polyuria, polydipsia, polyphagia or heat/cold intolerances. HEMATOLOGIC: Denies thrombophilia/previous clots, or coagulopathy/bleeding disorders. ONCOLOGIC: Denies personal history of malignancy. DERMATOLOGIC: Denies rashes or pruritus. PSYCHIATRIC: Denies any suicidal or homicidal ideation. Denies hallucinations. PAST MEDICAL HISTORY: Asthma Anxiety Obesity PAST SURGICAL HISTORY: Hysterectomy Umbilical hernia repair x2 PAST SOCIAL HISTORY: Negative for tobacco alcohol and recreational drug use, FAMILY HISTORY: Noncontributory Allergies: Chlorpheniramine, dextromethorphan, pseudoephedrine Home medications, patient reports being on albuterol PRN for management of asthma Coded Allergies: chlorpheniramine (Unverified Allergy, Unknown, 08/30/23) dextromethorphan (Unverified Allergy, Unknown, 08/30/23) pseudoephedrine (Unverified Allergy, Unknown, 08/30/23) PHYSICAL EXAM GENERAL APPEARANCE: The patient is awake, alert, and oriented, in no acute cardiopulmonary distress, appears anxious NEUROLOGICAL: Cranial nerves II-XII grossly intact. Motor is 5/5 in bilateral upper and lower extremities proximal to distal. No sensory deficits. HEENT: Face is symmetric. Pupils are equal and reactive. Extraocular movements are intact. NECK: Supple. No JVD. No thyromegaly. No submental, submandibular, pre- /postauricular, occipital or supraclavicular lymphadenopathy. CHEST: Normal chest expansion. No Telemetry. LUNGS: Absence of any rales, rhonchi or any wheezing. CARDIOVASCULAR: Regular. S1 and S2 normal. No appreciable rubs, murmurs or gallops. ABDOMEN: Soft , nondistended, tenderness to palpation of the right lower quadrant and pain on palpation around the periumbilical area, bowel sounds present : Deferred. No Taylor. EXTREMITIES: Non-edematous and not cyanotic. No clubbing. Good capillary refill. SKIN: No skin breakdown. Vital Sign (Last 24 Hours) 06/19/25 08:14 Temp 99.0 Pulse 93 Resp 15 B/P (MAP) 110/82 Pulse Ox 97 O2 Delivery Room Air* O2 Flow Rate 0 FiO2 21 LABS: Laboratory: Test 06/19/25 05:52 06/19/25 05:50 06/19/25 05:31 Range/Units Influenza Type A Antigen Negative For Type A NEGATIVE Influenza Type B Antigen Negative For Type B NEGATIVE White Blood Count 18.2 H 4.8-10.8 K/uL Red Blood Count 5.48 4.00-5.50 MIL/uL Hemoglobin 14.9 12.0-16.0 g/dL Hematocrit 45.2 36-48 % Mean Corpuscular Volume 82.5 79-99 fL Mean Corpuscular Hemoglobin 27.2 27.0-33.0 pg Mean Corpuscular Hemoglobin Concent 33.0 32.0-36.0 g/dL Red Cell Distribution Width 13.9 11.0-15.5 % Platelet Count 237 130-400 K/uL Mean Platelet Volume 11.5 H 7.5-10.5 fL Immature Granulocyte % (Auto) 0.4 0-1 % Neutrophils (%) (Auto) 85.4 H 40.0-77.0 % Lymphocytes (%) (Auto) 8.5 L 21.0-51.0 % Monocytes (%) (Auto) 3.5 3.0-13.0 % Eosinophils (%) (Auto) 2.0 0.0-8.0 % Basophils (%) (Auto) 0.2 0.0-5.0 % Neutrophils # (Auto) 15.6 H 1.8-7.7 K/uL Lymphocytes # (Auto) 1.6 1.0-4.8 K/uL Monocytes # (Auto) 0.6 0.1-1.0 K/uL Eosinophils # (Auto) 0.37 0.00-0.70 K/uL Basophils # (Auto) 0.04 0.00-0.20 K/uL Absolute Immature Granulocyte (auto 0.07 0-1 K/uL Nucleated Red Blood Cells 0.0 0.0-0.19 % White Cell Morphology Comment See comments Sodium Level 142 136-145 mmol/L Potassium Level 3.6 3.5-5.1 mmol/L Chloride Level 108 101-111 mmol/L Carbon Dioxide Level 23 21-32 mmol/L Blood Urea Nitrogen 8 7-18 mg/dL Creatinine 0.6 0.5-1.0 mg/dL Glomerular Filtration Rate Calc 121 >90 mL/min Random Glucose 91 70-105 mg/dL Total Calcium 7.9 L 8.5-10.1 mg/dL Total Bilirubin 0.6 0.2-1.0 mg/dL Aspartate Amino Transf (AST/SGOT) 17 10-37 U/L Alanine Aminotransferase (ALT/SGPT) 45 12-78 U/L Alkaline Phosphatase 99 50-136 U/L Total Protein 7.6 6.0-8.3 g/dL Albumin 3.7 3.5-5.0 g/dL Lipase 31 16-77 U/L Serum Test, Qualitative NEGATIVE NEGATIVE Urine Color LIGHT-YELLOW YELLOW Urine Appearance CLOUDY H CLEAR Urine pH 8.5 H 5.0-8.0 Urine Specific [place] 1.018 1.001-1.031 Urine Protein NEGATIVE NEGATIVE mg/dL Urine Glucose (UA) NEGATIVE NEGATIVE mg/dL Urine Ketones NEGATIVE NEGATIVE mg/dL Urine Occult Blood +- (TRACE) H NEGATIVE Urine Nitrate NEGATIVE NEGATIVE Urine Bilirubin NEGATIVE NEGATIVE mg/dL Urine Urobilinogen 0.2 0.2-1.0 mg/dL Urine Leukocyte Esterase NEGATIVE NEGATIVE [place]/uL Urine RBC 2-5 H 0-1 /HPF Urine WBC 0-1 0-1 /HPF Urine Squamous Epithelial Cells RARE 0-2 /HPF Urine Amorphous Crystals (Auto) RARE None Seen /LPF Urine Bacteria FEW None Seen /HPF Current Medications Medications (Trade) Dose Ordered Sig/Dominguez Route PRN Reason Start Time Stop Time Status Last Admin Dose Admin Acetaminophen (TYLenol 325MG TAB) 650 mg Q6H PRN PO MILD PAIN (1-3) 06/19/25 08:30 07/19/25 08:29 UNV Albuterol (DUOneb) 1 udvial Q6H PRN IH SHORTNESS OF BREATH 06/19/25 08:30 07/19/25 08:29 UNV Budesonide (Pulmicort 0.5 Mg/2ml) 0.5 mg BIDRESP IH 06/19/25 08:00 07/19/25 07:59 06/19/25 08:17 0.5 MG Calcium Gluconate (Calcium Gluc 1gm Vial) 1 gm AD PRN IV hypocalcemia 06/19/25 08:30 07/19/25 08:29 UNV Ceftriaxone Sodium (ROCEphine 1G INJ) 1 gm BID IVPB 06/19/25 21:00 06/29/25 20:59 UNV Ketorolac Tromethamine (toRADol) 15 mg Q12H PRN IV MODERATE PAIN (4-6) 06/19/25 08:30 06/24/25 08:29 UNV Lactated Ringer's 1,000 ml @ 80 mls/hr [id number] IV 06/19/25 08:00 07/19/25 07:59 06/19/25 08:14 80 MLS/HR Magnesium Sulfate 50 ml @ 0 mls/hr PROTOCOL IV 06/19/25 08:30 07/19/25 08:29 UNV Metronidazole/ Sodium Chloride 100 ml @ 100 mls/hr Q8H IVPB 06/19/25 09:00 06/29/25 08:59 Morphine Sulfate (morPHINE 2MG SYG) 2 mg Q6H PRN IVP SEVERE PAIN (7-10) 06/19/25 08:00 06/26/25 07:59 Ondansetron HCl (zoFRAN 4MG INJ) 4 mg Q6H PRN IVP NAUSEA/VOMITING 06/19/25 08:00 07/19/25 07:59 Potassium Chloride 100 ml @ 100 mls/hr AD PRN IV POTASSIUM PROTOCOL 06/19/25 08:30 07/19/25 08:29 UNV Potassium Chloride (K-Dur/Klor-Con 20meq) 20 meq AD PRN PO POTASSIUM PROTOCOL 06/19/25 08:30 07/19/25 08:29 UNV Potassium Chloride (KCl 10% Elixir 20meq/15ml) 20 meq AD PRN PO POTASSIUM PROTOCOL 06/19/25 08:30 07/19/25 08:29 UNV DIAGNOSTICS / RADIOLOGY: SERVICE 0620 REASON: abd pain ORDERING PHYSICIAN: CELENA MICHAEL MD PROCEDURE: ABD PEL WO - CT ABDOMEN/PELVIS W/O CONTRAST ADDENDUM REPORT ADDENDUM: Results were shared by telephone at 8:24 AM EST on 06-19-[address] ALEC DALLAS. /[place] EXAM: CT Abdomen and Pelvis Without IV contrast CLINICAL HISTORY: Abdominal pain. TECHNIQUE: Axial computed tomography images of the abdomen and pelvis without intravenous contrast. CONTRAST: No IV contrast. COMPARISON: CT abdomen and pelvis dated 09/04/2024. FINDINGS: LUNG BASES: The lung bases appear clear. No pleural effusions are seen. LIVER: Unremarkable. GALLBLADDER AND BILE DUCTS: The gallbladder appears within normal limits. No radioopaque gallstones are seen. No biliary ductal dilatation is evident. PANCREAS: Unremarkable. SPLEEN: Unremarkable. ADRENAL GLANDS: Unremarkable. KIDNEYS, URETERS, AND BLADDER: The kidneys appear within normal limits. There is no hydronephrosis or hydroureter. A 2 mm concretion is seen at the lower pole of the right kidney. STOMACH AND BOWEL: Unremarkable appearance of the stomach and bowel. No evidence of bowel obstruction. No evidence suggesting enteritis or colitis. APPENDIX: The appendix appears prominent, measuring 8-9 mm. There is mild periappendiceal fat stranding surrounding the appendicular tip, likely representing changes of acute appendicitis. No periappendiceal fluid. PERITONEUM: No free fluid. No free air. LYMPH NODES: No lymphadenopathy is evident. REPRODUCTIVE: The uterus is surgically absent. Bilateral ovaries are unremarkable as visualized. VASCULATURE: No evidence of abdominal aortic aneurysm. BONES: No aggressive appearing osseous lesion. No acute osseous pathology evident. IMPRESSION: Prominent appendix measuring 8-9 mm with mild periappendiceal fat stranding surrounding the appendicular tip, likely representing changes of acute appendicitis. Correlation with clinical setting and laboratory parameters is recommended. Small focus of air in the subcutaneous plane of the anterior abdominal wall on the right, measuring 5.3 mm, likely iatrogenic, possibly due to subcutaneous injections. Stable, 2 mm concretion at the lower pole of the right kidney. In comparison to the prior study, changes of acute appendicitis seen in the present scan were not seen previously. Resolution of previously seen left ovarian cyst and resolution of previously seen minimal free fluid in the pelvis. /[place] ASSESSMENT: Acute appendicitis, POA Significant leukocytosis with bandemia, POA Dehydration, POA Recent Mounjaro use, 06/18/2025 at 6:00 a.m., POA Obesity, POA History of asthma, POA Anxiety, POA Hypocalcemia, mild, POA PLAN: Patient will be admitted to medical-surgical floor Patient will be kept strictly NPO We will start patient on lactated Ringer's at 80 mL/hour We will start patient on IV antibiotics with Rocephin/Flagyl Consultation with General surgery will be requested for management of acute appendicitis, plan for laparoscopic appendectomy later this afternoon We will keep patient on pain control with morphine for severe pain, Toradol for moderate pain, Zofran four PRN antiemetic We will keep patient on GI prophylaxis with Pepcid DVT prophylaxis with SCDs With regards to mild hypocalcemia noted, patient has had episodes of hypocalcemia on prior labs as well, we will check a vitamin-D level, PTH, we w ill check ionized calcium level as well, we will place patient on IV calcium per protocol in case ionized calcium is significantly low All labs will be repeated in the morning Date of service: 06/19/2025 Plan of care was discussed with patient at bedside, Stephen Castaneda MD Advanced Care Planning: Which of the following were discussed: Hospice care: Yes __ No _X_ Therapeutic options: Yes _X_ No __ Advance directives: Yes _X_ No __ Other discussions: Discussed with who?: Patient Voluntary nature of this service was explained to the patient? Yes _x_ No __ Amount of time spent: 20 minutes STEPHEN CASTANEDA MD Jun 19, 2025 08:24
[2025-06-19] MEDS ORDERED: CALCIUM GLUC 1GM/10ML VIAL IV PRN (08:30)
[2025-06-19] MEDS ORDERED: MAGNESIUM 2GM PREMIX 50ML 50 ML IV SCH (08:30)
[2025-06-19] MEDS ORDERED: PoTASSium chloRIDE 20MEQ ER 20 MEQ ERTAB PO PRN (08:30)
[2025-06-19 08:33] LABS: INR 0.99 (0.85-1.15)
[2025-06-19] MEDS ORDERED: CALCIUM GLUC 1GM 1 GM in 0.9%NACL 100ML 100 ML IV ONE (12:00)
--- NOTE | 2025-06-19 12:06 | CONS ---
CONSULT NOTE: Consulting physician:Dr Castaneda Consulting service: General surgery Reason for consultation: Acute appendicitis History of present illness: This is a 34-year-old female with no significant medical history outside of anxiety and asthma that has been consulted to surgery after presenting to the hospital with new onset of nausea and vomiting with the increase of abdominal pain that has migrated to lower regions. Upon initial workup imaging performed and concerns of appendicitis noted. On physical exam patient with right lower quadrant tenderness and rebound tenderness. Patient currently NPO on IV fluids and IV antibiotics Medical history: Anxiety Surgical history hysterectomy Multiple C-sections Review of systems: General: No Fever, No Chills, No Night Sweats, No Fatigue, No Malaise, No Appetite, No Other HEENT: No Head Aches, No Visual Changes, No Eye Pain, No Ear Pain, No Dysphasia, No Sinus Congestion, No Post Nasal Drip, No Sore Throat, No Other Pulmonary: No Dyspnea, No Cough, No Pleuritic Chest Pain, No Other Cardiovascular: No: Chest Pain, Palpitations, Orthopnea, Paroxysmal No Dyspnea, Edema, Lt Headedness, Other Gastrointestinal: No: Nausea, Vomiting, Diarrhea, Constipation, Melena, Hematochezia, Other Genitourinary: No Dysuria, No Frequency, No Incontinence, No Hematuria, No Retention, No Other Musculoskeletal: No: other, neck pain, shoulder pain, arm pain, back pain, hand pain, leg pain, foot pain Skin: No Urticaria, No Rash, No Other Neurological: No: Weakness, Numbness, Incoordination, Change in speech, Confusion, Seizures, Other Physical exam: General: Awake alert and oriented Heart: Regular rate and rhythm} Lungs: [Clear to auscultation no distress Abdomen: Right lower quadrant tenderness with rebound Assessment: This is a 34-year-old with concerns of acute appendicitis Plan: At this point in time plan will be to take patient to OR by Dr. Teran Patient to remain NPO Patient to continue with the IV fluids and IV antibiotics Dr. Teran updated on patient's status and nursing report any further acute events Surgical case has been discussed with my supervising physician in the above plan was formulated and agreed upon Supervising physicians evaluation the patient be done within next 24 hours We appreciate the hospitalist team for us to participate in patient's care. Greater than 55 minutes of time spent patient, reviewing chart, working on documentation DOALYS ENNIS Jr. PAC Jun 19, 2025 12:06
[2025-06-19] MEDS: CALCIUM GLUC 1GM 2 GM in 0.9%NACL 100ML 100 ML IV ONE (12:27)
[2025-06-19] MEDS ORDERED: MIDAZOLAM HCL 1 MG/ML 2ML VIAL ONE (12:40)
[2025-06-19] MEDS ORDERED: LIDOCAINE PF 100MG/5ML (2%) SYRINGE 5ML ONE (12:40)
[2025-06-19] MEDS ORDERED: ALBUTEROL INHALER 90MCG/INH IH ONE ×2 (13:27)
[2025-06-19] MEDS ORDERED: GLYCOPYRROLATE 0.2 MG/ML 5 ML VIAL ONE (13:39)
[2025-06-19] MEDS ORDERED: NEOSTIGMINE METHYLSULFATE 1MG/ML IV ONE (13:39)
--- NOTE | 2025-06-19 14:10 | OP ---
Operative Note: DATE OF PROCEDURE: 06/19/25 PROCEDURE:Laparoscopic appendectomy. ANESTHESIA: General endotracheal. PREOPERATIVE DIAGNOSIS: Appendicitis. POSTOPERATIVE DIAGNOSIS: Acute appendicitis without perforation. DEVICES LEFT IN PLACE: None. FLUID AND BLOOD PRODUCTS: Per anesthesia report. BLOOD LOSS: Minimal. SPECIMENS REMOVED: Appendix. COMPLICATIONS: None immediate. SURGEON: Corwin Teran MD. DESCRIPTION OF PROCEDURE: The patient was brought to the operating room and placed on the operating table in supine position where general endotracheal anesthesia was achieved. We then proceeded to prep and drape the abdomen in sterile fashion, Because of patient's history and umbilical hernia repair we decided to go in the left upper quadrant at grant's point. I created a transverse incision at the left upper quadrant and dissected through the abdominal wall with the Optiview under direct visualization entered the abdominal cavity and obtain a pneumoperitoneum. We then evaluated the umbilical area there was a hernia repair there was with a questionable mesh and decision is made to made the midline incision above this in the upper abdomen at the midline I made a longitudinal incision dissected through skin and subcutaneous tissue and divided the fascia of the midline introduced the origin trocar. I placed another 5 mm trocar in the left lower quadrant. We then placed the patient in reverse Trendelenburg and rotated to the left. We then proceeded to evaluate the pelvis. We evaluated the appendix and it has changes of acute appendicitis. We therefore proceeded to release the appendix from all its adhesions using blunt and sharp dissection with a LigaSure and then proceeded to create a window at the base of the appendix with a [place] dissector and divided the mesoappendix with the LigaSure device. Once the base of the appendix was free, we then proceeded to divide the appendix with the [place] vascular load stapler. Placed the appendix into the Endo Catch bag. We inspected the pelvis again and we did not find any signs of an abscess or any other signs of infection. Then, under direct visualization, we proceeded to remove our trocars and there was no bleeding from the abdominal wall. We removed the appendix from the abdomen using the EndoCatch bag and relieved the pneumoperitoneum. We closed the fascia at the umbilicus using a 0-Vicryl stitch in the [id number] fashion and then the skin was closed using a skin stapler. The patient tolerated the procedure well. I was present as well during the entire procedure. All counts were correct x 2 at the end of the procedure. CORWIN TERAN MD Jun 19, 2025 14:10
[2025-06-19] MEDS ORDERED: PROMETHAZINE HCL 25 MG/ML 1ML AMPULE IM PRN (15:00)
[2025-06-19] MEDS: SIMETHICONE 80 MG TAB.CHEW PO SCH (20:19)
[2025-06-19] MEDS: 0.9%NACL 1000ML 1,000 ML IV SCH (20:19)
[2025-06-19] MEDS: FAMOTIDINE 20MG VIAL IV SCH (20:19)
[2025-06-19] MEDS: PoTASSium chl 10% ELIXIR 20MEQ 20 MEQ/15 ML UDCUP PO PRN (21:51)
[2025-06-20 00:44] VITALS: BP 98/62; PULSE 74; RESP 16; TEMP 97.8
[2025-06-20 04:00] VITALS: BP 96/58; PULSE 66; RESP 16; TEMP 97.9
[2025-06-20 04:22] LABS: IMMATURE GRANULOCYTE ABSOLUTE 0.06 K/uL (0-1); NUCLEATED RED BLOOD CELLS 0.0 % (0.0-0.19); PLATELET COUNT (AUTO) 232 K/uL (130-400); RED BLOOD CELL COUNT(AUTO) 4.79 MIL/uL (4.00-5.50); RED CELL DISTRIBUTION WIDTH 13.8 % (11.0-15.5); WHITE BLOOD COUNT (AUTO) 11.3 K/uL (4.8-10.8)
[2025-06-20 04:33] LABS: CREATININE 0.6 mg/dL (0.5-1.0); GLOMERULAR FILTR. RATE CALC 121.0 mL/min (>90); GLUCOSE,RANDOM 85.0 mg/dL (70-105); SODIUM SERUM 137.0 mmol/L (136-145); UREA NITROGEN, BLOOD 7.0 mg/dL (7-18)
[2025-06-20 07:59] VITALS: BP 99/65; PULSE 67; RESP 18; TEMP 97.5
[2025-06-20 11:55] VITALS: BP 96/60; PULSE 77; RESP 18; TEMP 97.8
[2025-06-20] MEDS: LACTULOSE 20 GM/30 ML UDCUP PO ONE (13:07)
--- NOTE | 2025-06-20 13:58 | PN ---
This is a 34-year-old female postop day one for laparoscopic appendectomy without perforation by Dr. Teran Interval history: This 34-year-old female seen in her room resting Labs and vitals unremarkable Patient tolerating diet Patient is passing flatus Physical exam General: Awake alert and oriented Heart: Regular rate and rhythm} Lungs: Clear to auscultation no distress Abdomen: [Soft, nontender, nondistended Assessment : This is a 34-year-old female status post appendectomy by Dr. Teran Plan: From surgical standpoint patient is cleared for discharge once cleared medically Patient to advance diet to soft diet Patient to follow up in two weeks with Dr. Teran is office Patient to monitor for infection Avoid constipation Surgical team to sign off at this time. Thank you Surgical case has been discussed with my supervising physician in the above plan was formulated and agreed upon We appreciate the hospitalist team for us to participate in patient's care. Greater than 45 minutes of time spent patient, reviewing chart, working on documentation Vitals/Labs Vital Signs Date Time Temp Pulse Resp B/P (MAP) Pulse Ox O2 Delivery O2 Flow Rate FiO2 06/20/25 11:55 97.9 77 18 96/60 100 Room Air 06/20/25 07:47 0 21 Laboratory Tests 06/20/25 03:59 Medications Current Medications Sodium Chloride 1,000 ml @ 0 mls/hr ONCE ONCE IV Last administered on 06/19/25at 05:57; Start 06/19/25 at 05:30; Stop 06/19/25 at 05:38; Status DC Ondansetron HCl 4 mg ONCE ONCE IVP Last administered on 06/19/25at 05:57; Start 06/19/25 at 05:30; Stop 06/19/25 at 05:38; Status DC Pantoprazole Sodium 40 mg ONCE ONCE IVP Last administered on 06/19/25at 05:57; Start 06/19/25 at 05:30; Stop 06/19/25 at 05:38; Status DC Ceftriaxone Sodium 1 gm ONCE ONCE IVPB Last administered on 06/19/25at 08:03; Start 06/19/25 at 07:30; Stop 06/19/25 at 07:31; Status DC Morphine Sulfate 2 mg ONCE ONCE IVP Last administered on 06/19/25at 08:03; Start 06/19/25 at 08:00; Stop 06/19/25 at 08:01; Status DC Ondansetron HCl 4 mg ONCE ONCE IVP Last administered on 06/19/25at 08:05; Start 06/19/25 at 08:00; Stop 06/19/25 at 08:01; Status DC Budesonide 0.5 mg BIDRESP IH Last administered on 06/19/25at 19:27; Start 06/19/25 at 08:00; Stop 07/19/25 at 07:59 Lactated Ringer's 1,000 ml @ 80 mls/hr [id number] IV Last administered on 06/19/25at 15:50; Start 06/19/25 at 08:00; Stop 06/19/25 at 19:53; Status DC Ondansetron HCl 4 mg Q6H PRN IVP Last administered on 06/19/25at 17:01; Start 06/19/25 at 08:00; Stop 07/19/25 at 07:59 Metronidazole/ Sodium Chloride 100 ml @ 100 mls/hr Q8H IVPB Last administered on 06/20/25at 08:23; Start 06/19/25 at 09:00; Stop 06/29/25 at 08:59 Morphine Sulfate 2 mg Q6H PRN IVP; Start 06/19/25 at 08:00; Stop 06/19/25 at 15:34; Status DC Potassium Chloride 100 ml @ 100 mls/hr AD PRN IV; Start 06/19/25 at 08:30; Stop 07/19/25 at 08:29 Potassium Chloride 20 meq AD PRN PO Last administered on 06/20/25at 01:51; Start 06/19/25 at 08:30; Stop 07/19/25 at 08:29 Potassium Chloride 20 meq AD PRN PO; Start 06/19/25 at 08:30; Stop 07/19/25 at 08:29 Magnesium Sulfate 50 ml @ 0 mls/hr PROTOCOL IV; Start 06/19/25 at 08:30; Stop 07/19/25 at 08:29 Acetaminophen 650 mg Q6H PRN PO; Start 06/19/25 at 08:30; Stop 07/19/25 at 08:29 Albuterol 1 udvial Q6H PRN IH; Start 06/19/25 at 08:30; Stop 07/19/25 at 08:29 Ketorolac Tromethamine 15 mg Q12H PRN IV Last administered on 06/19/25at 12:01; Start 06/19/25 at 08:30; Stop 06/19/25 at 15:34; Status DC Calcium Gluconate 1 gm AD PRN IV; Start 06/19/25 at 08:30; Stop 06/19/25 at 11:49; Status DC Ceftriaxone Sodium 1 gm BID IVPB Last administered on 06/20/25at 07:47; Start 06/19/25 at 21:00; Stop 06/29/25 at 20:59 Famotidine 20 mg BID IV Last administered on 06/20/25at 07:47; Start 06/19/25 at 21:00; Stop 07/19/25 at 20:59 Calcium Gluconate 1 gm/Sodium Chloride 100 ml @ 0 mls/hr ONCE ONCE IV; Start 06/19/25 at 12:00; Stop 06/19/25 at 11:49; Status DC Calcium Gluconate 2 gm/Sodium Chloride 100 ml @ 0 mls/hr ONCE ONCE IV Last administered on 06/19/25at 12:27; Start 06/19/25 at 12:00; Stop 06/19/25 at 12:01; Status DC Bupivacaine HCl 5 mg STK-MED ONCE .ROUTE; Start 06/19/25 at 12:25; Stop 06/19/25 at 12:25; Status DC Lidocaine HCl 100 mg STK-MED ONCE .ROUTE; Start 06/19/25 at 12:40; Stop 06/19/25 at 12:40; Status DC Midazolam HCl 2 mg STK-MED ONCE .ROUTE; Start 06/19/25 at 12:40; Stop 06/19/25 at 12:40; Status DC Propofol 200 mg STK-MED ONCE IV; Start 06/19/25 at 12:40; Stop 06/19/25 at 12:40; Status DC Rocuronium Banco 50 mg STK-MED ONCE .ROUTE; Start 06/19/25 at 12:40; Stop 06/19/25 at 12:40; Status DC Fentanyl Citrate 100 mcg STK-MED ONCE .ROUTE; Start 06/19/25 at 12:40; Stop 06/19/25 at 12:41; Status DC Bupivacaine HCl 150 mg STK-MED ONCE INJ Last administered on 06/19/25at 13:04; Start 06/19/25 at 13:04; Stop 06/19/25 at 13:06; Status DC Albuterol Sulfate 1 inh STK-MED ONCE IH; Start 06/19/25 at 13:27; Stop 06/19/25 at 13:27; Status DC Albuterol Sulfate 1 inh STK-MED ONCE IH; Start 06/19/25 at 13:27; Stop 06/19/25 at 13:27; Status DC Dexamethasone Sodium Phosphate 4 mg STK-MED ONCE .ROUTE; Start 06/19/25 at 13:31; Stop 06/19/25 at 13:31; Status DC Ondansetron HCl 4 mg STK-MED ONCE .ROUTE; Start 06/19/25 at 13:31; Stop 06/19/25 at 13:31; Status DC Glycopyrrolate 1 mg STK-MED ONCE .ROUTE; Start 06/19/25 at 13:39; Stop 06/19/25 at 13:39; Status DC Neostigmine Methylsulfate 10 mg STK-MED ONCE IV; Start 06/19/25 at 13:39; Stop 06/19/25 at 13:39; Status DC Ondansetron HCl 4 mg STK-MED ONCE .ROUTE; Start 06/19/25 at 14:44; Stop 06/19/25 at 14:43; Status DC Ondansetron HCl 4 mg AD PRN IVP Last administered on 06/19/25at 14:54; Start 06/19/25 at 15:00; Stop 06/19/25 at 15:08; Status DC Metoclopramide HCl 10 mg AD PRN IVP; Start 06/19/25 at 15:00; Stop 06/19/25 at 15:08; Status DC Promethazine HCl 25 mg AD PRN IM; Start 06/19/25 at 15:00; Stop 06/19/25 at 15:08; Status DC Ketorolac Tromethamine 30 mg AD PRN IV; Start 06/19/25 at 15:00; Stop 06/19/25 at 15:08; Status DC Morphine Sulfate 2 mg AD PRN IVP; Start 06/19/25 at 15:00; Stop 06/19/25 at 15:08; Status DC Fentanyl Citrate 25 mcg Q5MIN PRN IVP; Start 06/19/25 at 15:00; Stop 06/19/25 at 15:08; Status DC Naloxone HCl 0.1 mg AD PRN IVP; Start 06/19/25 at 15:00; Stop 06/19/25 at 15:08; Status DC Simethicone 80 mg TID PO Last administered on 06/20/25at 13:07; Start 06/19/25 at 21:00; Stop 07/19/25 at 20:59 Ketorolac Tromethamine 30 mg Q6H PRN IV Last administered on 06/20/25at 05:32; Start 06/19/25 at 15:30; Stop 06/24/25 at 15:29 Morphine Sulfate 4 mg Q4H PRN IM; Start 06/19/25 at 15:30; Stop 06/26/25 at 15:29 Sodium Chloride 1,000 ml @ 80 mls/hr [id number] IV Last administered on 06/19/25at 20:19; Start 06/19/25 at 20:00; Stop 07/19/25 at 19:59 Lactulose 20 gm ONCE ONCE PO Last administered on 06/20/25at 13:07; Start 06/20/25 at 13:00; Stop 06/20/25 at 13:05; Status DC ODALYS ENNIS Jr. PAC Jun 20, 2025 13:58
--- NOTE | 2025-06-20 14:47 | DS ---
Discharge Summary Hospital Course Summary: This is a 34-year-old female patient with significant past medical history for anxiety and asthma presented to the ED with severe lower abdominal and periumbilical pain associated with nausea and multiple episodes of vomiting. Symptoms began shortly after she self administered her 1st dose of tirzepatide, which she obtained from [place] for weight loss purposes, without a diagnosis of diabetes mellitus. She reported poor oral intake and escalating abdominal pain reaching 10/10 in severity. On presentation she was afebrile and hemodynamically stable. Lab evaluation revealed significant leukocytosis with bandemia, well electrolytes were largely unremarkable aside from mild hypocalcem ia. test was negative. CT scan of abdomen and pelvis demonstrated a prominent appendix measuring 8-9 mm with surrounding periappendiceal fat stranding concerning for developing acute appendicitis for which she was admitted. The patient was made strictly NPO, administered IV fluids, IV antibiotics and pain control. General surgery was consulted and given the imaging findings and clinical presentation patient underwent laparoscopic appendectomy and patient tolerated the procedure well without complications. Postoperatively patient remained stable, with improvement in abdominal pain and no evidence of infection or surgical complications. Diet was gradually advanced and tolerated. At the time of discharge the patient was medically stable and cleared by surgical team. She was instructed to advance her diet to soft foods as tolerated, avoid constipation, monitor for signs of infection including fever, worsening abdominal pain, or wound changes, Antivert further use of non-prescribed medications. Patient was given a prescription of Augmentin b.i.d. for 3 days and ondansetron for nausea. Patient was instructed to continue her home medications at her usual dose. Patient was advised to follow up with Dr. Dean at his office in 2 weeks. Credit Officer(s): Dr. Dean, general surgeon CONSULT NOTE: Consulting physician:Dr Castaneda Consulting service: General surgery Reason for consultation: Acute appendicitis History of present illness: This is a 34-year-old female with no significant medical history outside of anxiety and asthma that has been consulted to surgery after presenting to the hospital with new onset of nausea and vomiting with the increase of abdominal pain that has migrated to lower regions. Upon initial workup imaging performed and concerns of appendicitis noted. On physical exam patient with right lower quadrant tenderness and rebound tenderness. Patient currently NPO on IV fluids and IV antibiotics Medical history: Anxiety Surgical history hysterectomy Multiple C-sections Review of systems: General: No Fever, No Chills, No Night Sweats, No Fatigue, No Malaise, No Ap petite, No Other HEENT: No Head Aches, No Visual Changes, No Eye Pain, No Ear Pain, No Dysphasia, No Sinus Congestion, No Post Nasal Drip, No Sore Throat, No Other Pulmonary: No Dyspnea, No Cough, No Pleuritic Chest Pain, No Other Cardiovascular: No: Chest Pain, Palpitations, Orthopnea, Paroxysmal No Dyspnea, Edema, Lt Headedness, Other Gastrointestinal: No: Nausea, Vomiting, Diarrhea, Constipation, Melena, Hematochezia, Other Genitourinary: No Dysuria, No Frequency, No Incontinence, No Hematuria, No Re tention, No Other Musculoskeletal: No: other, neck pain, shoulder pain, arm pain, back pain, hand pain, leg pain, foot pain Skin: No Urticaria, No Rash, No Other Neurological: No: Weakness, Numbness, Incoordination, Change in speech, Confusion, Seizures, Other Physical exam: General: Awake alert and oriented Heart: Regular rate and rhythm} Lungs: [Clear to auscultation no distress Abdomen: Right lower quadrant tenderness with rebound Assessment: This is a 34-year-old with concerns of acute appendicitis Plan: At this point in time plan will be to take patient to OR by Dr. Dean Patient to remain NPO Patient to continue with the IV fluids and IV antibiotics Dr. Dean updated on patient's status and nursing report any further acute events Surgical case has been discussed with my supervising physician in the above plan was formulated and agreed upon Supervising physicians evaluation the patient be done within next 24 hours We appreciate the hospitalist team for us to participate in patient's care. Greater than 55 minutes of time spent patient, reviewing chart, working on documentation ODALYS ENNIS Jr. PAC Jun 19, 2025 12:06 Electronically Signed by: ODALYS ENNIS Jr., PAC, CONSTANTIN06/19/25 1206 Electronically Co-Signed by: CORWIN DEAN MD06/20/25 1615 Procedure(s): PATIENT: EMILY APARICIO MR#: [id number] : 1990 SEX: F AGE: 34 LOCATION: ED ORDER 0621 STATUS: REG ER REPORT#: [id number] SERVICE 0620 REASON: abd pain ORDERING PHYSICIAN: CELENA MICHAEL MD PROCEDURE: ABD PEL WO - CT ABDOMEN/PELVIS W/O CONTRAST ADDENDUM REPORT ADDENDUM: Results were shared by telephone at 8:24 AM EST on 06-19-[address] ALEC DALLAS. /[facility] EXAM: CT Abdomen and Pelvis Without IV contrast CLINICAL HISTORY: Abdominal pain. TECHNIQUE: Axial computed tomography images of the abdomen and pelvis without intravenous contrast. CONTRAST: No IV contrast. COMPARISON: CT abdomen and pelvis dated 09/04/2024. FINDINGS: LUNG BASES: The lung bases appear clear. No pleural effusions are seen. LIVER: Unremarkable. GALLBLADDER AND BILE DUCTS: The gallbladder appears within normal limits. No radioopaque gallstones are seen. No biliary ductal dilatation is evident. PANCREAS: Unremarkable. SPLEEN: Unremarkable. ADRENAL GLANDS: Unremarkable. KIDNEYS, URETERS, AND BLADDER: The kidneys appear within normal limits. There is no hydronephrosis or hydroureter. A 2 mm concretion is seen at the lower pole of the right kidney. STOMACH AND BOWEL: Unremarkable appearance of the stomach and bowel. No evidence of bowel obstruction. No evidence suggesting enteritis or colitis. APPENDIX: The appendix appears prominent, measuring 8-9 mm. There is mild periappendiceal fat stranding surrounding the appendicular tip, likely representing changes of acute appendicitis. No periappendiceal fluid. PERITONEUM: No free fluid. No free air. LYMPH NODES: No lymphadenopathy is evident. REPRODUCTIVE: The uterus is surgically absent. Bilateral ovaries are unremarkable as visualized. VASCULATURE: No evidence of abdominal aortic aneurysm. BONES: No aggressive appearing osseous lesion. No acute osseous pathology evident. IMPRESSION: Prominent appendix measuring 8-9 mm with mild periappendiceal fat stranding surrounding the appendicular tip, likely representing changes of acute appendicitis. Correlation with clinical setting and laboratory parameters is recommended. Small focus of air in the subcutaneous plane of the anterior abdominal wall on the right, measuring 5.3 mm, likely iatrogenic, possibly due to subcutaneous injections. Stable, 2 mm concretion at the lower pole of the right kidney. In comparison to the prior study, changes of acute appendicitis seen in the present scan were not seen previously. Resolution of previously seen left ovarian cyst and resolution of previously seen minimal free fluid in the pelvis. /[place] DICTATED BY: FELI EDGE Jr., MD DATE: 06/19/25 0829 ELECTRONICALLY SIGNED BY: DATE: EXAM: CT Abdomen and Pelvis Without IV contrast CLINICAL HISTORY: Abdominal pain. TECHNIQUE: Axial computed tomography images of the abdomen and pelvis without intravenous contrast. CONTRAST: No IV contrast. COMPARISON: CT abdomen and pelvis dated 09/04/2024. FINDINGS: LUNG BASES: The lung bases appear clear. No pleural effusions are seen. LIVER: Unremarkable. GALLBLADDER AND BILE DUCTS: The gallbladder appears within normal limits. No radioopaque gallstones are seen. No biliary ductal dilatation is evident. PANCREAS: Unremarkable. SPLEEN: Unremarkable. ADRENAL GLANDS: Unremarkable. KIDNEYS, URETERS, AND BLADDER: The kidneys appear within normal limits. There is no hydronephrosis or hydroureter. A 2 mm concretion is seen at the lower pole of the right kidney. STOMACH AND BOWEL: Unremarkable appearance of the stomach and bowel. No evidence of bowel obstruction. No evidence suggesting enteritis or colitis. APPENDIX: The appendix appears prominent, measuring 8-9 mm. There is mild periappendiceal fat stranding surrounding the appendicular tip, likely representing changes of acute appendicitis. No periappendiceal fluid. PERITONEUM: No free fluid. No free air. LYMPH NODES: No lymphadenopathy is evident. REPRODUCTIVE: The uterus is surgically absent. Bilateral ovaries are unremarkable as visualized. VASCULATURE: No evidence of abdominal aortic aneurysm. BONES: No aggressive appearing osseous lesion. No acute osseous pathology evident. IMPRESSION: Prominent appendix measuring 8-9 mm with mild periappendiceal fat stranding surrounding the appendicular tip, likely representing changes of acute appendicitis. Correlation with clinical setting and laboratory parameters is recommended. Small focus of air in the subcutaneous plane of the anterior abdominal wall on the right, measuring 5.3 mm, likely iatrogenic, possibly due to subcutaneous injections. Stable, 2 mm concretion at the lower pole of the right kidney. In comparison to the prior study, changes of acute appendicitis seen in the present scan were not seen previously. Resolution of previously seen left ovarian cyst and resolution of previously seen minimal free fluid in the pelvis. /[place] DICTATED BY: FELI EDGE Jr., MD DATE: 06/19/25819 ELECTRONICALLY SIGNED BY: FELI EDGE Jr., MD DATE: 06/19/25819 Assessment/Plan: ASSESSMENT: Acute appendicitis status post laparoscopic appendectomy on 06/19/2025 Significant leukocytosis with bandemia, resolving Dehydration, resolved Recent Mounjaro use, 06/18/2025 at 6:00 a.m Obesity History of asthma Anxiety Hypocalcemia, mild Discharge Instructions: ADMISSION DATE : 06/19/2025 DISCHARGE DATE: 06/20/2025 DISPOSITION : Home CONDITION : Stable BUILDING CLEANER(S) : Dr. Dean, general surgeon FOLLOW UP APPOINTMENT(S) : f/u with PCP in one 2-3 days, f/u with Dr. Dean in 1-2 weeks PROCEDURES: Laparoscopic appendectomy IMAGING (S) : report attached to summary MICROBIOLOGY : report attached to summary ACTIVITY : ad renae HOME MEDICATIONS : Continued Home Medications: Active Scripts Ondansetron HCl (Ondansetron HCl) 4 Mg Tablet, 1 TAB PO Q8HPRN PRN for nausea/vomiting for 3 Days, #15 TAB 0 Refills Prov:JOHN FOWLER MD 06/20/25 Amoxicillin/Potassium Clav (Amox Tr-K Clv 875-125 mg Tab) 875 Mg-125 Mg Tablet, 1 TAB PO BID for 3 Days, #6 TAB 0 Refills Prov:JOHN FOWLER MD 06/20/25 Albuterol Sulfate (Ventolin Hfa/Proventil Hfa/Proair Hfa) 90 Mcg/Puff Puff, 2 PUFF IH Q4H PRN for SHORTNESS OF BREATH/WHEEZING for 30 Days, #1 INH 2 Refills Prov:GLORIA KUO Sr., MD 03/01/23 Discontinued Reported Medications Mirtazapine (Mirtazapine) 7.5 Mg Tablet, 1 TAB PO HS 08/30/23 Sertraline HCl (Sertraline HCl) 50 Mg Tablet, 50 MG PO DAILY 08/30/23 Discontinued Scripts Ondansetron (Ondansetron Odt) 4 Mg Tab.rapdis, 4 MG PO Q6HPRN PRN for nausea, #16 TAB 0 Refills Prov:CORRIE DEL RIO MD 05/18/25 Methylprednisolone (Medrol) 4 Mg Tab.ds.pk, 1 TAB PO AD for 6 Days, #21 TAB 0 Refills 6 on day 1 then reduce by one tablet daily until gone Prov:CARLOS MUÑOZ PAC 04/30/25 Albuterol Sulfate (Ventolin Hfa/Proventil Hfa/Proair Hfa) 90 Mcg Puff, 2 PUFF IH Q4H for WHEEZING, #1 INHALER 0 Refills Prov:ANGELES REYNOLDS FINISH REMOVER 02/09/25 Metronidazole (Flagyl) 375 Mg Capsule, 500 MG PO BID for 7 Days, #14 CAP Prov:CELENA MICHAEL MD 09/04/24 Nystatin (Nystatin) 100,000 Unit/Ml Oral.susp, 5 ML PO QID for 7 Days, #140 ML 0 Refills Prov:GWEN GREGORIO MD 09/11/23 Ondansetron (Ondansetron Odt) 4 Mg Tab.rapdis, 4 MG PO TIDP PRN for NAUSEA, #30 TAB 0 Refills Prov:GWEN GREGOIRO MD 09/11/23 Montelukast Sodium (Montelukast Sodium) 10 Mg Tablet, 10 MG PO HS for 30 Days, #30 TAB Prov:MARISABEL COOK [facility] 09/09/23 Prednisone (Prednisone) 10 Mg Tablet, 10 MG PO DAILY for 10mgx5 days followed 5mgx5, #5 TAB 0 Refills Prov:CELESTE TRINIDAD FOOD PACKER 09/08/23 Prednisone (Prednisone) 5 Mg/5 Ml Solution, 5 MG PO DAILY, #5 ML 0 Refills Prov:CELESTE TRINIDAD FOOD PACKER 09/08/23 Budesonide/Glycopyr/Formoterol (Breztri Aerosphere Inhaler) 160 Mcg-9 Mcg-4.8 Mcg/Actuation Hfa.aer.ad, 10.7 GM IH DAILY, #30 DAYS 0 Refills Prov:CELESTE TRINIDAD FOOD PACKER 09/08/23 New Medications: Amoxicillin/Potassium Clav (Amox Tr-K Clv 875-125 mg Tab) 875 Mg-125 Mg Tablet 1 TAB PO BID for 3 Days, #6 TAB 0 Refills Ondansetron HCl (Ondansetron HCl) 4 Mg Tablet 1 TAB PO Q8HPRN PRN for nausea/vomiting for 3 Days, #15 TAB 0 Refills Continued Medications: Albuterol Sulfate (Ventolin Hfa/Proventil Hfa/Proair Hfa) 90 Mcg/Puff Puff 2 PUFF IH Q4H PRN for SHORTNESS OF BREATH/WHEEZING for 30 Days, #1 INH 2 Refills Time spent arranging discharge: 1-30 minutes ATTESTATION BY PHYSICIAN I have seen and examined the patient. I reviewed the documentation, medical decision making, and treatment plan as noted by the resident physician above. I agree with the findings and plan of care. PANFILO DIEGO MD, HARSHAVARDHA MD Jun 20, 2025 14:46
[2025-06-20] MEDS ORDERED: AMOX1TAB16 PO (15:07)
[2025-06-20] MEDS ORDERED: ONDA-104 PO (15:07)
[2025-06-20 16:32] VITALS: BP 98/62; PULSE 76; RESP 18
[2025-07-03] MEDS ORDERED: ALBUHFA IH (21:55)
[2025-07-03] MEDS ORDERED: METH4TAB PO (21:55)
== END 2025-06-20 18:08 | disposition home or self-care (01) ==
LOC: EDH 05:20 → UNDOADMOB 05:21 → INTOOBSV 05:21 → EDHIP 05:21 → 3AH 15:20
PROVIDERS: ADMIT Internal Medicine; ATTEND Internal Medicine
DX: K35.80 Unspecified acute appendicitis (principal); D72.825 Bandemia; E86.0 Dehydration; F41.9 Anxiety disorder, unspecified; J45.909 Unspecified asthma, uncomplicated; E83.51 Hypocalcemia; E66.9 Obesity, unspecified; Z90.710 Acquired absence of both cervix and uterus; Z68.32 Body mass index [BMI] 32.0-32.9, adult; Z98.890 Other specified postprocedural states; Z20.822 Contact with and (suspected) exposure to COVID-19
CPT/HCPCS: 36415; 74176; 80048; 80053; 81001; 82306; 82330; 83690; 83735; 83970; 84703; 85025; 85610; 85730; 87804; 88304; 94640; 94664; 96361; 96365; 96366; 96367; 96368; 96375; 96376; 99285; G0378; J0612; J0696; J1100; J1885; J2003; J2250; J2270; J2405; J2470; J2704; J2710; J3010; J3490; J7030; A4649; A4930; A6206; C1769; J0665; J1308